=== PATIENT | male | born 1930 | race Caucasian/White ===

== ENCOUNTER 2018-10-25 09:21 | Emergency (ER) | payer MEDICARE, BC ==
[2018-10-25 09:41] VITALS: BP 141/76
--- NOTE | 2018-10-25 09:56 | UC ---
Respiratory Complaint HPI - HPI Summary HPI Summary: Pt presents with c/o nasal congestion, productive cough with yellow/brown phlegm X 2 days. Pt has past hx of smoking for "long time". Pt reports generalized malaise and fatigue. Pt states that his has pneumonia and is a resident in a local detention. - History of Current Complaint Chief Complaint: UCRespiratory Stated Complaint: COUGH THROAT Time Seen by Provider: 10/25/18 09:38 Hx Obtained From: Patient Onset/Duration: Sudden Onset, Lasting Days, Still Present Timing: Constant Severity Initially: Mild Severity Currently: Moderate Pain Intensity: 0 Character: Cough: Productive, Sputum Description: - yellow/brown Aggravating Factors: Exertion, Deep Breaths, Recumbent Position Alleviating Factors: OTC Meds Associated Signs And Symptoms: Positive: Nasal Congestion - Risk Factors Pulmonary Embolism Risk Factors: Negative Cardiac Risk Factors: Elevated Lipids Pseudomonas Risk Factors: Negative Tuberculosis Risk Factors: Negative - Allergies/Home Medications Allergies/Adverse Reactions: Allergies Allergy/AdvReac Type Severity Reaction Status Date / Time Sulfa (Sulfonamide Allergy Nausea And Verified 10/25/18 09:32 Antibiotics) Vomiting PMH/Surg Hx/FS Hx/Imm Hx Previously Healthy: Yes Endocrine History: Dyslipidemia Cardiovascular History: Cardiac Disease - Surgical History Surgical History: Yes Surgery Procedure, Year, and Place: cataracts 2013, eye surgery 2014 - Family History Known Family History: Positive: Hypertension - Social History Occupation: Retired Lives: With Family Alcohol Use: Occasionally Substance Use Type: None Smoking Status (MU): Former Smoker Have You Smoked in the Last Year: No When Did the Patient Quit Smoking/Using Tobacco: 1981 - Immunization History Most Recent Influenza Vaccination: 2013 Review of Systems All Other Systems Reviewed And Are Negative: Yes Constitutional: Positive: Fatigue Skin: Positive: Negative Eyes: Positive: Negative ENT: Positive: Sinus Congestion Respiratory: Positive: Shortness Of Breath, Cough Cardiovascular: Positive: Negative Gastrointestinal: Positive: Negative Genitourinary: Positive: Negative Motor: Positive: Weakness Neurovascular: Positive: Negative Musculoskeletal: Positive: Negative Neurological: Positive: Negative Psychological: Positive: Negative Is Patient Immunocompromised?: No Physical Exam Triage Information Reviewed: Yes Appearance: Thin Vital Signs: Initial Vital Signs Temp 98.9 F 10/25/18 09:37 Pulse 93 10/25/18 09:37 Resp 18 10/25/18 09:37 BP 141/76 10/25/18 09:37 Pulse Ox 99 10/25/18 09:37 Vital Signs Reviewed: Yes Eye Exam: Normal ENT: Positive: Nasal congestion Dental Exam: Normal Neck exam: Normal Respiratory: Positive: Decreased breath sounds Cardiovascular Exam: Normal Musculoskeletal Exam: Normal Neurological Exam: Normal Psychological Exam: Normal Skin Exam: Normal Diagnostics - Radiology No standard instances Radiology Interpretation Completed By: Radiologist - Medical Services Manager: Sylvie Rey S, ([id number]) Piano Mover: REBEKAH (VICENTEANCE) Report Date: 2018 09:47:00 Report Status: Final ======= Start of Report Content Patient Name: BRIGHT LICEA Medical Record#: [id number] Ordering Physician: Parul Hurt [employer] Acct.#: [id number] : 1930 Age: 88 Sex: M Location: [facility] Exam Date: 10/25/18946 ADM Status: REG ER Order Information: CHEST PA LAT 2 VWS Accession Number: [id number] CPT: 90534 Indication: Cough. 2 views of the chest and straight no mediastinal shift. Hyperinflated lung aguirre are noted. Right paramediastinal density is noted. Infiltrate or mass is not excluded. Left lung field is clear. IMPRESSION: Right paramediastinal density for which a mass or pneumonia is not excluded. COPD is noted. < Electronically signed by Sylvie Rey MD in OV> 10/25/18 1012 Dictated By: Sylvie Rey MD Dictated Date/Time: 10/25/18 1011 Transcribed Date/Time: 10/25/18 1011 Copy to: CC:Mac Ibarra MD; Parul Hurt [employer]; Rod Schneider MD Imaging - [facility] Imaging - [facility] - [facility] [address] [place] [id number] [place] [id number] ph [phone]) ph [phone] ph ) End of Report Content Respiratory Course/Dx - Course Course Of Treatment: I discussed the results of the xray and instructed the pt to follo wup as soon as possible with PCP. Pt verbalized understanding and agreed to plan of care. - Differential Dx/Diagnosis Differential Diagnosis/HQI/PQRI: Bronchitis, Other - lung mass Provider Diagnosis: Pneumonia, Mass of right lung Discharge ED - Sign-Out/Discharge Documenting (check all that apply): Patient Departure All imaging exams completed and their final reports reviewed: Yes - Discharge Plan Condition: Stable Disposition: HOME Prescriptions: Albuterol HFA INHALER* [Ventolin HFA Inhaler*] 1 - 2 puff INH Q6H PRN #1 mdi PRN Reason: Sob/Wheezing DOXYcycline CAP(*) [DOXYcycline 100MG CAP(*)] 100 mg PO Q12H #20 cap Patient Education Materials: Community Acquired Pneumonia (ED), Pneumonia (ED) Referrals: Mac Ibarra MD [Primary Care Provider] - As Soon As Possible - Billing Disposition and Condition Condition: STABLE Disposition: Home
== END 2018-10-25 10:38 | disposition home or self-care (01) ==
LOC: UCCORT 09:21
DX: J18.9 Pneumonia, unspecified organism (principal); R91.8 Other nonspecific abnormal finding of lung field; Z88.2 Allergy status to sulfonamides; Z87.891 Personal history of nicotine dependence
CPT/HCPCS: 71046; 99212; G0463

== ENCOUNTER → 2018-12-08 10:29 | Day surgery (SDC) | payer MEDICARE, BC ==
[~2018-12-08 10:29] MED LIST: Benzocaine/Butamben/Tetracain (CETACAINE - SINGLE USE) 5 gm TOPICAL ONE; Buffered Lidocaine 1% SYRIN* 1 ML/SYRINGE INTRADERM ONE; Cisatracurium* 2 MG/ML MDV 5 ML ONE; Dexamethasone IV* 4 MG/ML 1 ML (4 MG) ONE; Famotidine IV* 10 MG/ML 2 ML (20 mg) IV ONE; Famotidine IV* 10 MG/ML 2 ML (20 mg) ONE; Glycopyrrolate IV* 0.2 MG/ML 1 ML VIAL ONE; Lactated Ringers 1000 ML Bag* 1,000 ML IV SCH; Levalbuterol 0.63MG/3ML NEB* UNIT OF USE INH ONE; Levalbuterol 0.63MG/3ML NEB* UNIT OF USE INH PRN; Lidocaine 2% PF * 5 ML VIAL ONE; Midazolam* 1 MG/ML 5 ML VIAL (5 MG) ONE; Naloxone* 0.4 MG/ML 1 ML VIAL IV PRN; Neostigmine Methylsulfate* 1 MG/ML 10 ML VIAL (1 mg/ml) ONE; Ondansetron INJ* 2 MG/ML VIAL IV PRN; Ondansetron INJ* 2 MG/ML VIAL ONE; Phenylephrine 40 MCG/ML SYRINGE ONE; Propofol* 10 MG/ML 20 ML BTL ONE; fentaNYL* 50 MCG/ML 2 ML VIAL (100 MCG VIAL) ONE
--- NOTE | 2018-12-08 16:03 | BRIEFOPN ---
Brief Operative/Procedure Note - Operation Details Pre-Op Diagnosis: lung mass Post-Op Diagnosis: Lung cancer Procedures: Bronchoscopy/EBUS Surgeon(s)/Proceduralists: connor Barnes Anesthesia: GA- DR RAE Estimated Blood Loss: Minimal Findings: Negative for metastatic disease in lymph nodes, rt paratracheal mass positive for cancer Specimen(s)/Culture(s) Description: Cytology from L4, station 7, R4, Rt paratracheal mass Complications: None
[2018-12-08] MEDS: fentaNYL* 50 MCG/ML 2 ML VIAL (100 MCG VIAL) IV PRN ×2 (16:53→17:00)
[2018-12-08 18:09] VITALS: BP 134/70
--- NOTE | 2018-12-08 21:59 | PRO ---
BRONCHOSCOPY REPORT: DATE OF PROCEDURE: 12/08/18 - [facility] PROCEDURE PERFORMED: Bronchoscopy with endobronchial ultrasound-guided fine needle aspiration of mediastinal hilar nodes and paratracheal lung mass. PREPROCEDURAL DIAGNOSIS: Paratracheal lung mass. ANESTHESIA: General anesthesia. ANESTHESIOLOGIST: Dr. Ochoa. DESCRIPTION OF PROCEDURE: Informed consent was obtained from the patient prior to the procedure after all the risks and benefits were thoroughly explained. The patient was intubated with size 9 endotracheal tube. Appropriate time-out was performed and agreed on by attending staff prior to the procedure. A flexible Olympus bronchoscope was inserted through ET tube for airway inspection. No endobronchial lesions were noted. No significant extrinsic compression of the trachea or narrowing of the trachea was noted. Minimal secretions were noted and were suctioned. Bronchoscope was then withdrawn and EBUS bronchoscope was inserted. Station L4 was minimally enlarged and was accessed with 1 pass. Rapid on-site evaluation revealed lymphatic tissue with no malignant cells. Station 7 was accessed with 2 passes. Rapid on-site evaluation revealed lymphatic cells, no malignant cells were noted. Station R4 was minimally enlarged and was accessed with also 4 passes. Rapid on-site evaluation revealed lymphatic tissue with no malignant cells. Right paratracheal mass was then accessed also with 5 passes. Rapid on-site evaluation revealed malignant cells on fourth pass. Rest of the specimen was placed in CytoLyt. Air-dried slides were also prepared. The patient tolerated the procedure well. The patient was extubated and seen in Recovery in optimal condition. [id number]/CPS #: [id number] MTDD
[2019-01-02 21:43] LABS: LNGPR Specimen Cells; LNGPR Tissue ID CN19-1278-4
== END | disposition home or self-care (01) ==
LOC: OR 10:29
PROVIDERS: ATTEND Internal Medicine
DX: C34.01 Malignant neoplasm of right main bronchus (principal); Z87.891 Personal history of nicotine dependence; I10 Essential (primary) hypertension; K21.9 Gastro-esophageal reflux disease without esophagitis; M81.0 Age-related osteoporosis without current pathological fracture; E78.5 Hyperlipidemia, unspecified; I73.9 Peripheral vascular disease, unspecified
CPT/HCPCS: 81445; 88172; 88173; 88177; 88305; 88341; 88342; 88360; 93005; J1100; J2250; J2405; J2704; J2710; J3010

== ENCOUNTER 2018-12-11 09:29 | Emergency (ER) | payer MEDICARE, BC ==
--- OUTSIDE RECORDS SUMMARY | 2018-12-11 09:42 | XMS REPORT | Continuity of Care Document ---
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 Mac Ibarra Onset: 02/14 heart failure Osteochondropathy Mac Ibarra Onset: 02/14/2005 Peripheral vascular disease Mac Ibarra Onset: 02/14/2005 Senile osteoporosis Mac Ibarra Onset: 02/14/2005 Conduction disorder of the heart Mac Ibarra Onset: 02/14/2005 Congenital insufficiency of mitral valve Mac Ibarra Onset: 07/26/2007 Carotid artery occlusion Mac Ibarra Onset: 07/26/2007 Palpitations Mac Ibarra Onset: 07/26/2007 Hyperlipidemia Mac Ibarra Onset: 07/26/2007 Osteoporosis Mac Ibarra Onset: 07/26/2007 Gastroesophageal reflux disease Mac Ibarra Onset: 07/26/2007 Coronary arteriosclerosis Mac Ibarra Onset: 07/26/2007 Thrombosed internal hemorrhoids Mac Ibarra Onset: 07/26/2007 Kidney stone Mac Ibarra Onset: 07/26/2007 Kidney stone Stacey Mac Onset: 07/26/2007 Social History Type Date Description Comments Sex Unknown Tobacco Use Start: Unknown End: Former Cigarette Smoker 1 quit in 1981 Unknown Pack Daily ETOH Use Rarely consumes alcohol Recreational Drug Use Denies Drug Use Tobacco Use Start: Unknown End: Patient is a former smoker Unknown Smoking Status Reviewed: 12/15/16 Patient is a former smoker Allergies, Adverse Reactions, Alerts Active Allergies Reaction Severity Comments Date Flonase 03/03/2005 sussy 03/03/2005 nasacort 03/03/2005 Pneumovax rash Moderate 12/09/2010 Sulfa Antibiotics Nausea and Vomiting Moderate 01/03/2014 Medications Active Medications SIG Qnty Indications Ordering Provider Date Nebulizer use four times 1units J18.1 Mac Ibarra 11/04/2018 Device daily dx j45.998 as needed Levalbuterol HCL Use 1 3 ML qid 15ml J18.1 Mac Ibarra 11/04/2018 prn SOB 0.31mg/3ML Nebulizer Indomethacin 1 by mouth 60caps M10.071 Stacey Mac 03/03/2018 25mg every 8 hours Capsules as needed Flomax 2 by mouth 180caps Stacey Mac 08/10/2017 0.4mg Capsules every day Prilosec OTC 1 by mouth 90tabs M10.071 [email or web address] Mac 08/10/2017 20mg Tablets every day as DR needed Calcium Carbonate 1 PO qd Mac Ibarra 03/03/2005 600mg Tablets Tylenol Arthritis 2 PO qd prn James Ibarral 03/03/2005 650mg Caplets Aspirin 1 PO qd James Ibarral 03/03/2005 81mg [place] Lipitor 1 po qd 90tabs Stacey Mac 03/03/2005 20mg Tablets History Medications Ipratropium as directed four 270ml J18.1 Stacey Mac 11/04/2018 - [place]/Albuterol Sulfate times a day via 11/04/2018 nebulizer. j44.9 0.5-2.5(3)mg/3ML Solution Medications Administered in Office Medication SIG Qnty Indications Ordering Provider Date H1N1 Administration-Use Mac Ibarra 12/26/2008 Injection H1N1 Administration-Use Mac Ibarra 12/26/2008 Injection Immunizations CPT Code Status Date Vaccine Lot # Q2035 Given 11/17/2017 Influenza Virus (Afluria) Split Virus 3 Years [id number] Of Age And Older Q2035 Given 12/15/2016 Influenza Virus (Afluria) Split Virus 3 Years Of Age And Older Q2037 Given 11/19/2015 Influenza Vaccine (Fluvirin) 5 Years Of Age Or [id number] Older 48588 Given 12/19/2014 Pneumococcal Conjugate Vaccine 13 Valent For [id number] Intramuscular Use Q2035 Given 2014 Influenza Virus (Afluria) Split Virus 3 Years [id number] Of Age And Older Q2037 Given 11/16/2013 Influenza Vaccine (Fluvirin) 3 Years Of Age Or Older Q2037 Given 11/16/2013 Influenza Vaccine (Fluvirin) 3 Years Of Age Or Older Q2038 Given 11/15/2012 Influenza Vaccine (Fluzone) Administered Age 5 [id number] And Older Q2037 Given 11/11/2011 Influenza Vaccine (Fluvirin) 5 Years Of Age Or [id number] Older 57693 Given 12/09/2010 Tetanus,Diphtheria,Adut/Adol Pertussis [id number] Q2036 Given 11/26/2010 Flulaval [id number] 00537 Given 04/30/2010 [place]ovax [place] [id number] 36626 Given 11/08/2009 Influenza Vaccine [id number] 39036 Given 10/09/2009 Zostavax [id number] 20672 Given 01/15/2009 Influenza Vaccine 30157 Given 12/08/2007 Influenza Vaccine 32028 61551 Given 11/23/2006 Influenza Vaccine [id number] 95660 Given 12/02/2005 Influenza Vaccine 75365 Given 12/02/2005 Influenza Vaccine [id number] 16180 Given 12/17/2004 Influenza Vaccine [id number] 89495 Given 12/17/2004 Influenza Vaccine 85317 Given 12/05/2004 Pneumovax Polyvalent Inj Im [id number] 58326 Given 12/05/2004 [place] [address] Given 11/24/1995 DT Immunization DIP/Tet (History Only) Vital Signs Date Vital Result Comment 12/01/2018 9:49am BP Systolic 120 mmHg BP Diastolic 60 mmHg Heart Rate 100 /min Respiratory Rate 20 /min Weight 114.00 lb O2 % BldC Oximetry 93 % 11/18/2018 10:13am BP Systolic 170 mmHg BP Diastolic 88 mmHg Heart Rate 99 /min Weight 114.00 lb O2 % BldC Oximetry 96 % Results Test Date Facility Test Result H/L Range Note Comprehensive Metabolic 11/25/2018 [facility] Glucose 220 mg/dL High 65-[address] [place] [address] [phone] Urea Nitrogen (BUN) 16 mg/dL Normal 7-25 Creatinine 0.74 mg/dL Normal 0.70-1.11 2 eGFR Non-Afr. Cypriot 84 mL/min/1.73m2 Normal > Or = 60 eGFR 97 mL/min/1.73m2 Normal > Or = 60 BUN/Creatinine Ratio NOT APPLICABLE (calc) 6-22 Sodium 137 mmol/L Normal 135-146 Potassium 4.3 mmol/L Normal 3.5-5.3 Chloride 99 mmol/L Normal 98-110 Carbon Dioxide 29 mmol/L Normal 20-32 Calcium 9.4 mg/dL Normal 8.6-10.3 Protein, Total 6.1 g/dL Normal 6.1-8.1 Albumin 3.4 g/dL Low 3.6-5.1 Globulin 2.7 g/dL(calc) Normal 1.9-3.7 Albumin/Globulin Ratio 1.3 (calc) Normal 1.0-2.5 Bilirubin, Total 0.4 mg/dL Normal 0.2-1.2 Alkaline Phosphatase 104 U/L Normal 40-115 Ast 11 U/L Normal 10-35 Alt 9 U/L Normal 9-46 Laboratory test 11/25/2018 [facility] Enhanced PDF SEE IMAGE finding [address] [place] [address] [id number] [phone] Laboratory test 10/22/2018 Old DO Not Use [facility] Uric Acid 5.0 mg/dL 4.0-8 3, [address] [place] [address] [phone] Esr,Westergren 50 MM/HR High 0-20 Lipid Panel 10/22/2018 Old DO Not Use [facility] Cholesterol 115 mg/dL < [address] [place] [address] [phone] HDL Cholesterol 60 mg/dL >40 Cholesterol/HDL Ratio 1.9 CALC <5.0 LDL Chol,Calculated 36 mg/dL 0-100 5 Triglycerides 102 mg/dL <150 Non-HDL Cholesterol 55 mg/dL <130 6 General Health Panel 10/22/2018 Old DO Not Use [facility] TSH 1.98 mIU/L 0.40-4.[address] [facility] [address] [place] [address] [phone] T4,Free 1.1 ng/dL 0.8-1.8 CBC W/ Diff & 10/22/2018 Old DO Not Use [facility] WBC 13.7 thous/L High 3.8-10.[address] [place] [address] [phone] RBC 4.79 mill/L 4.20-5.80 Hemoglobin 14.5 g/dL 13.2-17.1 Hematocrit 42.4 % 38.5-50.0 MCV 88.5 FL 80.0-100.0 MCH 30.3 pg 27.0-33.0 MCHC 34.2 g/dL 32.0-36.0 RDW 13.0 % 11.0-15.0 Platelet Count 287 thous/L 140-400 MPV 9.1 FL 7.5-12.5 Neutrophils,Absolute 64431 cells/L High 1168-4786 Bands,Absolute PENDING Metamyelocytes,Absolute PENDING Myelocytes,Absolute PENDING Promyelocytes,Absolute PENDING Lymphocytes,Absolute 1300 cells/L 850-3900 Monocytes,Absolute 1030 cells/L High 200-950 Eosinophils,Absolute 230 cells/L 15-500 Basophils,Absolute 50 cells/L 0-200 Blast Cells,Absolute PENDING Nucleated RBC,Absolute PENDING Total Neutrophils,% 80.9 % High 40-75 Bands,% PENDING Metamyelocytes,% PENDING Myelocytes,% PENDING Promyelocytes,% PENDING Total Lymphocytes,% 9.5 % Low 12-47 Reactive Lymphocytes PENDING Monocytes,% 7.5 % 4-12 Eosinophils,% 1.7 % 0-4 Basophils,% 0.4 % 0-1 7 Blasts,% PENDING Nucleated RBC PENDING Comment PENDING CMP W/GFR 10/22/2018 Old DO Not Use [facility] Sodium 140 mmol/L 135-[address] [place] [address] [phone] Potassium 4.0 mmol/L 3.5-5.3 Chloride 102 mmol/L 98-110 Carbon Dioxide 28 mmol/L 20-32 8 Calcium 9.4 mg/dL 8.6-10.3 Alkaline Phosphatase 124 U/L High 40-115 Ast 14 U/L 10-35 Alt 11 U/L 9-46 Bilirubin,Total 0.4 mg/dL 0.2-1.2 Glucose 112 mg/dL High 65-99 9 Urea Nitrogen (BUN) 16 mg/dL 7-25 Creatinine 0.87 mg/dL 0.70-1.11 10 BUN/Creatinine Ratio 18.3 6-22 Protein,Total 6.6 g/dL 6.1-8.1 Albumin 3.7 g/dL 3.6-5.1 Globulin,Calculated 2.9 g/dL 1.9-3.7 A/G Ratio 1.3 1.0-2.5 Egfr Non-Afr. Cypriot 79 ML/MIN/1.73M2 > Or = 60 Egfr 91 ML/MIN/1.73M2 > Or = 60 Laboratory 10/22/2018 Old DO Not Use [facility] Vitamin 69 30-[address] D,25-Hydroxy,Total,Immunoassay NG/[place] [address] [phone] Laboratory 06/30/2018 Old DO Not Use [facility] Uric Acid 5.1 4.0-8.0 [address] mg/[place] [address] [phone] General 06/30/2018 Old DO Not Use [facility] TSH 3.00 0.40-4. Health [address] mIU/L 50 [place] [address] [phone] T4,Free 1.0 ng/dL 0.8-1.8 CBC W/ Diff & PLT 06/30/2018 Old DO Not Use [facility] WBC 9.1 thous/L 3.8-10.[address] [place] [address] [phone] RBC 4.94 mill/L 4.20-5.80 Hemoglobin 14.9 g/dL 13.2-17.1 Hematocrit 45.4 % 38.5-50.0 MCV 91.8 FL 80.0-100.0 MCH 30.0 pg 27.0-33.0 MCHC 32.7 g/dL 32.0-36.0 RDW 14.9 % 11.0-15.0 Platelet Count 277 thous/L 140-400 MPV 8.2 FL 7.5-12.5 Neutrophils,Absolute 7060 cells/L 0048-6105 Bands,Absolute PENDING Metamyelocytes,Absolute PENDING Myelocytes,Absolute PENDING Promyelocytes,Absolute PENDING Lymphocytes,Absolute 1230 cells/L 850-3900 Monocytes,Absolute 590 cells/L 200-950 Eosinophils,Absolute 200 cells/L 15-500 Basophils,Absolute 30 cells/L 0-200 Blast Cells,Absolute PENDING Nucleated RBC,Absolute PENDING Total Neutrophils,% 78 % High 40-75 Bands,% PENDING Metamyelocytes,% PENDING Myelocytes,% PENDING Promyelocytes,% PENDING Total Lymphocytes,% 14 % 12-47 Reactive Lymphocytes PENDING Monocytes,% 6 % 4-12 Eosinophils,% 2 % 0-4 Basophils,% 0 % 0-1 13 Blasts,% PENDING Nucleated RBC PENDING Comment PENDING CMP W/GFR 06/30/2018 Old DO Not Use [facility] Sodium 139 mmol/L 135-[address] [place] [address] [phone] Potassium 4.4 mmol/L 3.5-5.3 Chloride 102 mmol/L 98-110 Carbon Dioxide 29 mmol/L 20-32 14 Calcium 9.3 mg/dL 8.6-10.3 Alkaline Phosphatase 101 U/L 40-115 Ast 17 U/L 10-35 Alt 13 U/L 9-46 Bilirubin,Total 0.6 mg/dL 0.2-1.2 Glucose 100 mg/dL High 65-99 15 Urea Nitrogen (BUN) 16 mg/dL 7-25 Creatinine 0.93 mg/dL 0.70-1.11 16 BUN/Creatinine Ratio 17.4 6-22 Protein,Total 6.7 g/dL 6.1-8.1 Albumin 4.2 g/dL 3.6-5.1 Globulin,Calculated 2.5 g/dL 1.9-3.7 A/G Ratio 1.6 1.0-2.5 Egfr Non-Afr. Cypriot 75 ML/MIN/1.73M2 > Or = 60 Egfr 86 ML/MIN/1.73M2 > Or = 60 Laboratory 06/30/2018 Old DO Not Use [facility] Vitamin 71 30-[address] D,25-Hydroxy,Total,Immunoassay NG/[place] [address] [phone] Lipid Panel 06/30/2018 Old DO Not Use [facility] Cholesterol 115 <[address] mg/[place] [address] [phone] HDL Cholesterol 57 mg/dL >40 Cholesterol/HDL Ratio 2.0 CALC <5.0 LDL Chol,Calculated 39 mg/dL 0-100 18 Triglycerides 105 mg/dL <150 Non-HDL Cholesterol 58 mg/dL <130 19 1 Fasting reference interval For someone without known diabetes, a glucose value >125 mg/dL indicates that they may have diabetes and this should be confirmed with a follow-up test. 2 For patients >49 years of age, the reference limit for Creatinine is approximately 13% higher for people identified as -Cypriot. 3 FASTING 4 Therapeutic target for gout patients: <6.0 mg/dL 5 LDL-C is now calculated using the Glenn-Kevin calculation, which is a validated novel method providing better accuracy than the Friedewald equation in the estimation of LDL-C. Glenn ROBLES et al.MGE.2013;310(19):7235-4471 Desirable range <100 mg/dL for primary prevention; <70 mg/dL for patients with CHD or diabetic patients with >or= 2 CHD risk factors. 6 For patients with diabetes plus 1 major ASCVD risk factor, treating to a non-HDL-C goal of <100 mg/dL (LDL-C of <70 mg/ dL) is considered a therapeutic option. 7 Relative blood cell counts (%) should be compared with absolute cell counts (cells/mcL). Relative counts may not be clinically meaningful if the absolute count of one or more cell type is decreased. Reference ranges for relative cell counts derived from: A Manual of Laboratory and Diagnostics Tests, 9th Ed, S[employer] Nabil & Viver[employer], 2015. Pediatric Reference Intervals, 7th Ed, [employer], 2011. 8 Reference range for high altitude clients: 18-30 mmol/L 9 GLUCOSE REFERENCE RANGE BASED ON FASTING SPECIMEN. 10 The upper reference limit for Creatinine is approximately 13% higher for people identified as -Cypriot. 11 Vitamin D Status 25-OH Vitamin D: Deficiency: <20 ng/mL Insufficiency: 20-29 ng/mL Optimal: > or = 30 ng/mL For 25-OH Vitamin D testing on patients on D2-supplementation and patients for whom quantitation of D2 and D3 fractions is required, the [facility] 25-OH Vit D, (D2,D3),LC/MS/MS is recommended: Order code 65948 (patients >2 yrs). 12 Therapeutic target for gout patients: <6.0 mg/dL 13 Relative blood cell counts (%) should be compared with absolute cell counts (cells/mcL). Relative counts may not be clinically meaningful if the absolute count of one or more cell type is decreased. Reference ranges for relative cell counts derived from: A Manual of Laboratory and Diagnostics Tests, 9th Ed, S[employer] Nabil & Viveros, 2015. Pediatric Reference Intervals, 7th Ed, [facility] Press, 2011. 14 Reference range for high altitude clients: 18-30 mmol/L 15 GLUCOSE REFERENCE RANGE BASED ON FASTING SPECIMEN. 16 The upper reference limit for Creatinine is approximately 13% higher for people identified as -Cypriot. 17 Vitamin D Status 25-OH Vitamin D: Deficiency: <20 ng/mL Insufficiency: 20-29 ng/mL Optimal: > or = 30 ng/mL For 25-OH Vitamin D testing on patients on D2-supplementation and patients for whom quantitation of D2 and D3 fractions is required, the [facility] 25-OH Vit D, (D2,D3),LC/MS/MS is recommended: Order code 02923 (patients >2 yrs). 18 LDL-C is now calculated using the Glenn-Brown calculation, which is a validated novel method providing better accuracy than the Friedewald equation in the estimation of LDL-C. Glenn SS et al.MEG.2013;310(19):2120-6701 Desirable range <100 mg/dL for primary prevention; <70 mg/dL for patients with CHD or diabetic patients with >or= 2 CHD risk factors. For additional information, please refer to http://[email or web address].com.[employer] [email or web address]/JYK448(This link is being provided for informational/educational purposes only.) 19 For patients with diabetes plus 1 major ASCVD risk factor, treating to a non-HDL-C goal of <100 mg/dL (LDL-C of <70 mg/ dL) is considered a therapeutic option. Procedures Date Code Description Status 10/22/2018 60244 Spirometry Graphic Record/Max Voluntary Vent Completed 07/08/2018 93318 PVR-Atrerial Study Completed 07/08/2018 05184 Holter Monitor Office Completed 07/05/2018 33875 Non-Invcorrotid/Comp /Bilat Study Completed 07/05/2018 82762 Echocardiography Completed 05/22/2016 101074186 Bone Mineral Density Test Completed 02/24/2004 [id number] Colonoscopy Completed Medical Devices Description No Information Available Encounters Type Date Location Provider Dx Diagnosis Office Visit 12/01/2018 10:00a Main Office Mac Ibarra R06.02 Shortness of breath C34.91 Malignant neoplasm of unsp part of right bronchus or lung J18.1 Lobar pneumonia, unspecified organism M75.101 Unsp rotatr-cuff tear/ruptr of right shoulder, not trauma I34.0 Nonrheumatic mitral (valve) insufficiency E78.5 Hyperlipidemia, unspecified I11.9 Hypertensive heart disease without heart failure N40.0 Benign prostatic hyperplasia without lower urinry tract symp I25.10 Athscl heart disease of [place] coronary artery w/o ang pctrs K21.9 Gastro-esophageal reflux disease without esophagitis E55.9 Vitamin D deficiency, unspecified R73.01 Impaired fasting glucose Office Visit 11/18/2018 10:30a Main Office Mac Ibarra 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 J18.1 Lobar pneumonia, unspecified organism J44.9 Chronic obstructive pulmonary disease, unspecified M75.101 Unsp rotatr-cuff tear/ruptr of right shoulder, not trauma I34.0 Nonrheumatic mitral (valve) insufficiency E78.5 Hyperlipidemia, unspecified 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, right ankle and foot I65.23 Occlusion and stenosis of bilateral carotid arteries Office Visit 11/04/2018 10:00a Main Office Mac Ibarra J18.1 Lobar pneumonia, unspecified organism J44.9 Chronic obstructive pulmonary disease, unspecified M75.101 Unsp rotatr-cuff tear/ruptr of right shoulder, not trauma I34.0 Nonrheumatic mitral (valve) insufficiency E78.5 Hyperlipidemia, unspecified 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, right ankle and foot I65.23 Occlusion and stenosis of bilateral carotid arteries Office Visit 10/07/2018 11:15a Main Office Mac Ibarra M75.101 Unsp rotatr -cuff tear/ruptr of right shoulder, not trauma Office Visit 09/23/2018 10:00a Main Office Mac Ibarra M75.101 Unsp rotatr -cuff tear/ruptr of right shoulder, not trauma Office Visit 09/14/2018 10:30a Main Office Mac Ibarra M75.101 Unsp rotatr -cuff tear/ruptr of right shoulder, not trauma Office Visit 09/08/2018 10:30a Main Office Mac Ibarra M75.101 Unsp rotatr -cuff tear/ruptr of right shoulder, not trauma Office Visit 08/03/2018 10:15a Main Office Mac Ibarra I34.0 Nonrheumatic mitral (valve) insufficiency E78.5 Hyperlipidemia, unspecified 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810 Encounter for preprocedural cardiovascular examination E78.5 Hyperlipidemia, unspecified I11.9 Hypertensive heart disease without heart failure 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, right ankle and foot I34.0 Nonrheumatic mitral (valve) insufficiency N40.0 Benign prostatic hyperplasia without lower urinry tract symp K21.9 Gastro-esophageal reflux disease without esophagitis I25.10 Athscl heart disease of [place] coronary artery w/o ang pctrs Assessments Date Code Description Provider 12/01/2018 R06.02 Shortness of breath Mac Ibarra 12/01/2018 C34.91 Malignant neoplasm of unspecified part of right Mac Ibarra bronchus or lung 12/01/2018 J18.1 Lobar pneumonia, unspecified organism Mac Ibarra 12/01/2018 M75.101 Unspecified rotator cuff tear or rupture of right Mac Ibarra shoulder, not specified as traumatic 12/01/2018 I34.0 Nonrheumatic mitral (valve) insufficiency James Ibarral 12/01/2018 E78.5 Hyperlipidemia, unspecified Stacey, [facility] 12/01/2018 I11.9 [facility] N40.0 Benign prostatic hyperplasia without lower urinary James Ibarral tract symptoms 12/01/2018 I25.10 Atherosclerotic heart disease of [place] coronary James Ibarral artery without angina pectoris 12/01/2018 K21.9 Gastro-esophageal reflux disease without esophagitis Kylio 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 11/18/2018 J44.9 Chronic obstructive pulmonary disease, unspecified [facility] 11/18/2018 M75.101 Unspecified rotator cuff tear or rupture of right James Ibarral shoulder, not specified as traumatic 11/18/2018 I34.0 Nonrheumatic mitral (valve) insufficiency [facility] 11/18/2018 E78.5 Hyperlipidemia, unspecified 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 11/04/2018 J44.9 Chronic obstructive pulmonary disease, unspecified [email or web address] 11/04/2018 M75.101 Unspecified rotator cuff tear or rupture of right Mac Ibarra shoulder, not specified as traumatic 11/04/2018 I34.0 Nonrheumatic mitral (valve) insufficiency [facility], [facility] 11/04/2018 E78.5 Hyperlipidemia, unspecified 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 11/04/2018 I65.23 Occlusion and stenosis of bilateral carotid arteries [facility] 10/22/2018 R06.02 Shortness of breath [facility] 10/22/2018 J44.9 Chronic obstructive pulmonary disease, [facility] 10/22/2018 R05 Cough Stacey, [facility] 10/07/2018 M75.101 Unspecified rotator cuff tear or rupture of right Mac Ibarra shoulder, not specified as traumatic 09/23/2018 M75.101 Unspecified rotator cuff tear or rupture of right Mac Ibarra shoulder, not specified as traumatic 09/14/2018 M75.101 Unspecified rotator cuff tear or rupture of right Mac Ibarra shoulder, not specified as traumatic 09/08/2018 M75.101 Unspecified rotator cuff tear or rupture of right Mac Ibarra shoulder, not specified as traumatic 08/03/2018 I34.0 [facility]rheumatic [facility] (valve) [facility] 08/03/2018 E78.5 [facility], [facility] 08/03/2018 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, right ankle [facility] foot [facility] 08/03/2018 I65.23 Occlusion and stenosis of bilateral carotid arteries Kylio Mac 08/03/2018 I11.9 Hypertensive heart disease without heart failure [facility] 08/03/2018 N40.0 Benign prostatic hyperplasia without lower urinary James Ibarral tract symptoms 08/03/2018 I25.10 Atherosclerotic heart disease of [place] coronary James Ibarral artery without angina pectoris 08/03/2018 K21.9 Gastro-esophageal reflux disease without esophagitis Kylio [facility] 08/03/2018 E55.9 Vitamin D deficiency, unspecified [facility] 08/03/2018 R73.01 Impaired fasting [facility] 08/03/2018 J44.9 Chronic obstructive pulmonary disease, [facility] 08/03/2018 Z00.00 Encounter for general adult medical examination James Ibarral without abnormal findings 07/08/2018 R00.2 Palpitations Stacey Mac 07/08/2018 I73.9 Peripheral vascular disease, [facility] 07/05/2018 I34.0 Nonrheumatic [facility] (valve) [facility] 07/05/2018 I65.23 Occlusion and stenosis of bilateral carotid arteries Stacey Mac 07/01/2018 Z01.810 Encounter for preprocedural cardiovascular examination James Ibarral 07/01/2018 E78.5 Hyperlipidemia, unspecified James Ibarral 07/01/2018 I11.9 Hypertensive heart disease without heart failure James Ibarral 07/01/2018 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, right ankle and foot James Ibarral 07/01/2018 I34.0 Nonrheumatic mitral (valve) insufficiency James Ibarral 07/01/2018 N40.0 Benign prostatic hyperplasia without lower urinary Mac Ibarra tract symptoms 07/01/2018 K21.9 Gastro-esophageal reflux disease without esophagitis James Ibarral 07/01/2018 I25.10 Atherosclerotic heart disease of [place] coronary RitchielioJamesl artery without angina pectoris 06/30/2018 E78.2 Mixed hyperlipidemia Mac Ibarra Plan of Treatment Future Appointment(s):12/09/2018 9:30 am - Nurse at Main [id number]/16/2018 10: 15 am - Mac Ibarra at Main [id number]/01/2018 - James IbarralR06.02 Shortness of breathReferral:Fabiano Herrera MD, Pulmonary KbuwufeqY56.91 Malignant neoplasm of unspecified part of right bronchus or lungJ18.1 Lobar pneumonia, unspecified tansqchbN17.101 Unspecified rotator cuff tear or rupture of right shoulder, not specified as traumaticComments:Discussed local measures and modalities of treatment as indicated including medications and side effects, stretching, exercise, local application of heat and ice packs, etc. Referral as needed and follow up of treatment plan including physical therapy, orthopedic and podiatry when necessary for progression of symptoms or failure to improve. Activities and lifestyle issues that can aggravate conditionexplored and counseled about appropriate changes where needed.left shoulder discomfort for over 1 year with difficulty trouwing a ballMRI as indicated to r/o rotator cuff tearI34.0 Nonrheumatic mitral (valve) insufficiencyComments:Issues of symptoms and aggravating lifestyle factors such as sleep, stress and dietary choices discussed. Symptoms and medication treatment and compliance and side effects discussed as needed. Need forSBE prophalaxis with antibiotics addressed and discussed where indicated. Follow up Echocardiogram as required.Discussed valvular pathology and need if indicated for antibiotic prophylaxis to prevent S.B.E. Medication compliance and side effects issues addressed. Follow up echocardiogram as warranted.Results of 2D echo and other testing reviewed and discussed with patient possible etiologies, progression prognosis and need for prophylactic antibiotics before dental procedures if warranted for S.B.E. prophylaxis. Routine follow up/ surveillance planned.E78.5 Hyperlipidemia, unspecifiedComments:Counselled on role of diet and excersize and importance to keep compliance with medication if prescribed and side effects. The importance of routine monitoring of blood lipids and liver tests to managetreatment and avoid side effects were discussed. Usual follow up is 3 months for LFT and Lipid profile. Patient education including dietary guidelines and materials provided.I11.9 Hypertensive heart disease without heart failureComments:CONT. TO MONITOR BP, CONT. LOW SALT DIET Discussed lifestyle factors and role of diet and excerns incontrol of disease and treatment goals and targets. Medication side effects and compliance issues addressed as indicated. The importance of ongoing self monitoring of BP and the symptoms of complications such as TIA, CVA and AMI reviewed. The importance of reporting changes in between visits and side effects stressed. monitoring of patient provided BP checks and laboratory tests related to medicationreviewed. Discussed lifestyle factors and role of diet and excerns in control of disease and treatment goals and targets. Medication side effects and compliance issues addressed as indicated. The importance of ongoing self monitoring of BP and the symptoms of complications such as TIA, CVA and AMI reviewed. The importance of reporting changes in between visits and side effects stressed. monitoring of patient provided BP checks and laboratory tests related to medication reviewed.N40.0 Benign prostatic hyperplasia without lower urinary tract symptomsComments:yearly digital examyearly psaSymptoms and signs reviewed and therapy such as medication , vitamins, diet supplements and their risks and benefits discussed. Symptom progression and referral to urology as appropriate for symptom progression and severity discussed and ordered. The importance of medication compliance when appropriate discussed and the effects of other medications such as antihistamines and OTC cold medicines considered and discussed with patient. Lab work as appropriate and follow up symptomatically and with SUSAN yearly arrangedyearly digital examyearly psaSymptoms and signs reviewed and therapy such as medication, vitamins, diet supplements and their risks and benefits discussed. Symptom progression and referral to urology as appropriate for symptom progression and severity discussedand ordered. The importance of medication compliance when appropriate discussed and the effects of other medications such as antihistamines and OTC cold medicines considered and discussed with patient.Lab work as appropriate and follow up symptomatically and with SUSAN yearly kdcmqfnlR04.10 Atherosclerotic heart disease of [place] coronary artery without angina pectorisComments:No evidence of angina. Continue medicaton as directed. Monitor cholesterol regularly. Continue daily ASA. Continue regular jpojbemdE29.9 Gastro-esophageal reflux disease without esophagitisComments:Discussed role of diet and excersize and weight reduction and contribution of common exacerbating factors/ substances such as stress/ fatigue/caffeine/nicotine/chocolate/ foods.Signs and symptoms of disease progression discussed as well as necessity to promptly report changes or worsening and the need for medication compliance. Periodic measurement and follow up for serum Magnesium levels while on PPI.E55.9 Vitamin D deficiency, qcclliwanpjF23.01 Impaired fasting glucoseComments:diet and exerise Functional Status Description No Information Available Mental Status Description No Information Available Referrals Refer to Reason for Referral Status Appt Date Fabiano Herrera MD URGENT Sent [address] [place] [address] [phone]
--- OUTSIDE RECORDS SUMMARY | 2018-12-11 09:42 | XMS REPORT | Continuity of Care Document ---
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 Payers Medicare [place] [address] [facility] [address] [place] Group Number: NONE tel: [facility] [address] [address] [facility] [address] [place] Group Number: NONE tel: Luis M Puentes [address] [place] [id number] [place] tel:
--- OUTSIDE RECORDS SUMMARY | 2018-12-11 09:42 | XMS REPORT | Continuity of Care Document ---
:1930 External Reference #:[id number] Author Name StaceyJamesl (transmitted by agent of provider Kierra Allen) Address [address] [place] [address] Problems Active Problems Provider Date Benign hypertensive [...] Prilosec OTC 1 by mouth 90tabs M10.071 [facility] Mac 08/10/2017 20mg Tablets every day as DR needed Calcium Carbonate 1 PO qd Mac Ibarra 03/03/2005 600mg Tablets Tylenol Arthritis 2 PO qd prn James Ibarral 03/03/2005 650mg Caplets Aspirin 1 PO qd James Ibarral 03/03/2005 81mg Chewtabs Lipitor 1 po qd 90tabs Stacey Mac 03/03/2005 20mg Tablets History Medications Ipratropium as directed four 270ml J18.1 Stacey Mac 11/04/2018 - [place]/Albuterol Sulfate times a day via 11/04/2018 nebulizer. j44.9 0.5-2.5(3)mg/3ML Solution Medications Administered in Office Medication SIG Qnty Indications Ordering Provider Date H1N1 Administration-Use Mac Ibarra 12/26/2008 Injection H1N1 Administration-Use Mac Ibarra 12/26/2008 Injection Immunizations CPT Code Status Date Vaccine Lot # [id number] Given 11/17/2017 Influenza Virus (Afluria) Split Virus 3 Years [id number] Of Age And Older Q2035 Given 12/15/2016 Influenza Virus (Afluria) Split Virus 3 Years Of Age And Older Q2037 Given 11/19/2015 Influenza Vaccine (Fluvirin) 3 Years Of Age Or [id number] Older 37287 Given 12/19/2014 Pneumococcal Conjugate Vaccine 13 Valent For [id number] Intramuscular Use Q2035 Given 2014 Influenza Virus (Afluria) Split Virus 3 Years [id number] Of Age And Older Q2037 Given 11/16/2013 Influenza Vaccine (Fluvirin) 3 Years Of Age Or Older Q2037 Given 11/16/2013 Influenza Vaccine (Fluvirin) 3 Years Of Age Or Older Q2038 Given 11/15/2012 Influenza Vaccine (Fluzone) Administered Age 3 [id number] And Older Q2037 Given 11/11/2011 Influenza Vaccine (Fluvirin) 3 Years Of Age Or [id number] Older 42731 Given 12/09/2010 Tetanus,Diphtheria,Adut/Adol Pertussis [id number] Q2036 Given 11/26/2010 Flulaval [id number] 75970 Given 04/30/2010 [id number] [address]4545 Given 11/08/2009 Influenza Vaccine [id number] 59393 Given 10/09/2009 Zostavax [id number] 81768 Given 01/15/2009 Influenza Vaccine 80230 Given 12/08/2007 Influenza Vaccine 24599 09559 Given 11/23/2006 Influenza Vaccine [id number] 89033 Given 12/02/2005 Influenza Vaccine 88206 Given 12/02/2005 Influenza Vaccine 21650 84873 Given 12/17/2004 Influenza Vaccine [id number] 25653 Given 12/17/2004 Influenza Vaccine 26484 Given 12/05/2004 Pneumovax Polyvalent Inj Im [id number] 80535 Given 12/05/2004 [place] [address] Given 11/24/1995 DT Immunization DIP/Tet (History Only) [...] H/L Range Note Comprehensive Metabolic 11/25/2018 [facility] Glucose 220 mg/dL High 65-[address] [place] [address] [phone] Urea Nitrogen (BUN) 16 mg/dL Normal 7-25 Creatinine 0.74 mg/dL Normal 0.70-1.11 2 eGFR Non-Afr. [place] 84 mL/min/1.73m2 Normal > Or = 60 [...] U/L Normal 9-46 Laboratory test 11/25/2018 [facility] Enhanced PDF SEE IMAGE finding [address] [place] [address] [id number] [phone] Laboratory test 10/22/2018 Old DO Not Use [facility] Uric Acid 5.0 mg/dL 4.0-8 3, [address] [place] [address] [phone] Esr,Westergren 50 MM/HR High 0-20 Lipid Panel 10/22/2018 Old DO Not Use [facility] Cholesterol 115 mg/dL < [address] [place] [address] [phone] HDL Cholesterol 60 mg/dL >40 Cholesterol/HDL Ratio 1.9 CALC <5.0 LDL Chol,Calculated 36 mg/dL 0-100 5 Triglycerides 102 mg/dL <150 Non-HDL Cholesterol 55 mg/dL <130 6 General Health Panel 10/22/2018 Old DO Not Use [facility] TSH 1.98 mIU/L 0.40-4.[address] [facility] [address] [place] [address] [phone] T4,Free 1.1 ng/dL 0.8-1.8 CBC W/ Diff & 10/22/2018 Old DO Not Use [facility] WBC 13.7 thous/L High 3.8-10.[address] [place] [address] [phone] RBC 4.79 mill/L 4.20-5.80 Hemoglobin 14.5 g/dL 13.2-17.1 Hematocrit 42.4 % 38.5-50.0 MCV 88.5 FL 80.0-100.0 MCH 30.3 pg 27.0-33.0 MCHC 34.2 g/dL 32.0-36.0 RDW 13.0 % 11.0-15.0 Platelet Count 287 thous/L 140-400 MPV 9.1 FL 7.5-12.5 Neutrophils,Absolute 67373 cells/L High 8733-7175 Bands,Absolute PENDING Metamyelocytes,Absolute PENDING Myelocytes,Absolute PENDING Promyelocytes,Absolute [...] [facility] Sodium 140 mmol/L 135-[address] [place] [address] [phone] Potassium 4.0 mmol/L 3.5-5.3 Chloride 102 mmol/L [...] 1.9-3.7 A/G Ratio 1.3 1.0-2.5 Egfr Non-Afr. [place] 79 ML/MIN/1.73M2 > Or = 60 Egfr 91 ML/MIN/1.73M2 > Or = 60 Laboratory 10/22/2018 Old DO Not Use [facility] Vitamin 69 30-[address] D,25-Hydroxy,Total,Immunoassay NG/[place] [address] [phone] Laboratory 06/30/2018 Old DO Not Use [facility] Uric Acid 5.1 4.0-8.0 [address] mg/[place] [address] [phone] General 06/30/2018 Old DO Not Use [facility] TSH 3.00 0.40-4. Health [address] mIU/L 50 [place] [address] [phone] T4,Free 1.0 ng/dL 0.8-1.8 CBC W/ Diff & PLT 06/30/2018 Old DO Not Use [facility] WBC 9.1 thous/L 3.8-10.[address] [place] [address] [phone] RBC 4.94 mill/L 4.20-5.80 Hemoglobin 14.9 g/dL 13.2-17.1 Hematocrit 45.4 % 38.5-50.0 MCV 91.8 FL 80.0-100.0 MCH 30.0 pg 27.0-33.0 MCHC 32.7 g/dL 32.0-36.0 RDW 14.9 % 11.0-15.0 Platelet Count 277 thous/L 140-400 MPV 8.2 FL 7.5-12.5 Neutrophils,Absolute 7060 cells/L 8615-6769 Bands,Absolute PENDING Metamyelocytes,Absolute PENDING Myelocytes,Absolute PENDING Promyelocytes,Absolute [...] CMP W/GFR 06/30/2018 Old DO Not Use [facility] Sodium 139 mmol/L 135-[address] [place] [address] [phone] Potassium 4.4 mmol/L 3.5-5.3 Chloride 102 mmol/L [...] 1.9-3.7 A/G Ratio 1.6 1.0-2.5 Egfr Non-Afr. [place] 75 ML/MIN/1.73M2 > Or = 60 Egfr 86 ML/MIN/1.73M2 > Or = 60 Laboratory 06/30/2018 Old DO Not Use [facility] Vitamin 71 30-[address] D,25-Hydroxy,Total,Immunoassay NG/[place] [address] [phone] Lipid Panel 06/30/2018 Old DO Not Use [facility] Cholesterol 115 <[address] mg/[place] [address] [phone] HDL Cholesterol 57 mg/dL >40 Cholesterol/HDL Ratio [...] approximately 13% higher for people identified as -Kazakh. 3 FASTING 4 Therapeutic target for gout patients: <6.0 mg/dL 5 LDL-C is now calculated using the Glenn-Kevin calculation, which is a validated novel method providing better accuracy than the Friedewald equation in the estimation of LDL-C. Glenn ROBLES et al.MEG.2013;310(19):1560-4171 Desirable range <100 mg/dL for primary prevention; [...] approximately 13% higher for people identified as -Kazakh. 11 Vitamin D Status 25-OH Vitamin D: Deficiency: <20 ng/mL Insufficiency: 20-29 ng/mL Optimal: > or = 30 ng/mL For 25-OH Vitamin D testing on patients on D2-supplementation and patients for whom quantitation of D2 and D3 fractions is required, the [facility] 25-OH Vit D, (D2,D3),LC/MS/MS is recommended: Order code 18486 (patients >2 yrs). 12 Therapeutic target for [...] Viveros, 2015. Pediatric Reference Intervals, 7th Ed, [facility], 2011. 14 Reference range for high altitude clients: 18-30 mmol/L 15 GLUCOSE REFERENCE RANGE BASED ON FASTING SPECIMEN. 16 The upper reference limit for Creatinine is approximately 13% higher for people identified as -Kazakh. 17 Vitamin D Status 25-OH Vitamin D: Deficiency: <20 ng/mL Insufficiency: 20-29 ng/mL Optimal: > or = 30 ng/mL For 25-OH Vitamin D testing on patients on D2-supplementation and patients for whom quantitation of D2 and D3 fractions is required, the [facility] 25-OH Vit D, (D2,D3),LC/MS/MS is recommended: Order code 21383 (patients >2 yrs). 18 LDL-C is now calculated using the Glenn-Brown calculation, which is a validated novel method providing better accuracy than the Friedewald equation in the estimation of LDL-C. Glenn SS et al.MEG.2013;310(19):2500-7288 Desirable range <100 mg/dL for primary prevention; <70 mg/dL for patients with CHD or diabetic patients with >or= 2 CHD risk factors. For additional information, please refer to http://education.[employer].Timeful/faq/UJQ680(This link is being provided for informational/educational purposes only.) 19 For patients with diabetes plus 1 major ASCVD risk factor, treating to a non-HDL-C goal of <100 mg/dL (LDL-C of <70 mg/ dL) is considered a therapeutic option. Procedures Date Code Description Status 10/22/2018 49061 Spirometry Graphic Record/Max Voluntary Vent Completed 07/08/2018 96137 PVR-Atrerial Study Completed 07/08/2018 94965 Holter Monitor Office Completed 07/05/2018 10950 Non-Invcorrotid/Comp /Bilat Study Completed 07/05/2018 75229 Echocardiography Completed 05/22/2016 604090510 Bone Mineral Density Test Completed 02/24/2004 97292056 Colonoscopy Completed Medical Devices Description No Information Available Encounters Type Date Location Provider Dx Diagnosis Office Visit 12/07/2018 10:00a Main Office Mac Ibarra C34.91 Malignant neoplasm of unsp part of right bronchus or lung Office Visit 12/01/2018 10:00a Main Office Mca Ibarra R06.02 Shortness of breath C34.91 Malignant neoplasm of unsp part of right bronchus or lung J18.1 Lobar pneumonia, unspecified organism M75.101 Unsp rotatr-cuff tear/ruptr of right shoulder, not trauma I34.0 Nonrheumatic mitral (valve) insufficiency E78.5 Hyperlipidemia, unspecified I11.9 Hypertensive heart disease without heart failure N40.0 Benign prostatic hyperplasia without lower urinry tract symp I25.10 Athscl heart disease of [place] coronary artery w/o ang pctrs K21.9 Gastro-esophageal [...] trauma Office Visit 09/23/2018 10:00a Main Office James Ibarral M75.101 Unsp rotatr -cuff tear/ruptr of right shoulder, not trauma Office Visit 09/14/2018 10:30a Main Office James Ibarral M75.101 Unsp rotatr -cuff tear/ruptr of right shoulder, not trauma Office Visit 09/08/2018 10:30a Main Office James Ibarral M75.101 Unsp rotatr -cuff tear/ruptr of right shoulder, not trauma Office Visit 08/03/2018 10:15a Main Office Mac Ibarra I34.0 Nonrheumatic mitral (valve) insufficiency E78.5 Hyperlipidemia, unspecified 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, right ankle and foot I65.23 Occlusion and stenosis of bilateral carotid arteries I11.9 Hypertensive heart disease without heart failure N40.0 Benign prostatic hyperplasia without lower urinry tract symp I25.10 Athscl heart disease of [place] coronary artery w/o ang pctrs K21.9 Gastro-esophageal [...] without esophagitis I25.10 Athscl heart disease of [place] coronary artery w/o ang pctrs Assessments Date Code Description Provider 12/07/2018 C34.91 Malignant neoplasm of unspecified part of right Gauss, Mac bronchus or lung 12/01/2018 R06.02 Shortness of breath Mac Ibarra 12/01/2018 C34.91 Malignant neoplasm of unspecified part of right Gauss, Mac bronchus or lung 12/01/2018 J18.1 Lobar pneumonia, unspecified organism Stacey, Mac 12/01/2018 M75.101 Unspecified rotator cuff tear or rupture of right Mac Ibarra shoulder, not specified as traumatic 12/01/2018 I34.0 Nonrheumatic mitral (valve) insufficiency Stacey, Mac 12/01/2018 E78.5 Hyperlipidemia, unspecified Galio, Mac 12/01/2018 I11.9 Hypertensive heart disease without heart failure Stacey, Mac 12/01/2018 N40.0 Benign prostatic hyperplasia without lower urinary James Ibarral tract symptoms 12/01/2018 I25.10 Atherosclerotic heart disease of [place] coronary James Ibarral artery without angina pectoris 12/01/2018 K21.9 Gastro-esophageal reflux disease without esophagitis Stacey [facility] 12/01/2018 E55.9 Vitamin D deficiency, unspecified Stacey, Mac 12/01/2018 R73.01 [facility]aired [facility] 11/18/2018 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 [facility] 11/18/2018 J18.1 Lobar pneumonia, unspecified organism [facility] 11/18/2018 J44.9 Chronic obstructive pulmonary disease, unspecified [facility] 11/18/2018 M75.101 Unspecified rotator cuff tear or rupture of right Mac Ibarra shoulder, not specified as traumatic 11/18/2018 I34.0 Nonrheumatic mitral (valve) insufficiency [facility] 11/18/2018 E78.5 Hyperlipidemia, unspecified Gauss, [facility] 11/18/2018 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, [facility] 11/18/2018 I65.23 Occlusion and stenosis of bilateral carotid arteries Stacey [facility] 11/04/2018 J18.1 Lobar pneumonia, unspecified organism [facility] 11/04/2018 J44.9 Chronic obstructive pulmonary disease, unspecified [facility], [facility] 11/04/2018 M75.101 Unspecified rotator cuff tear or rupture of right Mac Ibarra shoulder, not specified as traumatic 11/04/2018 I34.0 Nonrheumatic mitral (valve) insufficiency [facility], [facility] 11/04/2018 E78.5 Hyperlipidemia, unspecified Gauss, [facility] 11/04/2018 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, right ankle and foot Stacey, Mac 11/04/2018 I65.23 Occlusion and stenosis of bilateral carotid arteries James Ibarral 10/22/2018 R06.02 [facility] 10/22/2018 J44.9 Chronic obstructive pulmonary disease, [facility] 10/22/2018 R05 Cough Stacey, [facility] 10/07/2018 M75.101 Unspecified rotator cuff tear [...] traumatic 08/03/2018 I34.0 [facility]rheumatic [facility]valve) [facility] 08/03/2018 E78.5 Hyperlipidemia, unspecified Stacey Mac 08/03/2018 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, right ankle and foot James Ibarral 08/03/2018 I65.23 Occlusion and stenosis of bilateral carotid arteries James Ibarral 08/03/2018 I11.9 [facility]pert[facility] heart disease [facility] 08/03/2018 N40.0 Benign prostatic hyperplasia without lower urinary James Ibarral tract symptoms 08/03/2018 I25.10 Atherosclerotic heart disease of [place] coronary James Ibarral artery without angina pectoris 08/03/2018 K21.9 Gastro-esophageal reflux disease without esophagitis Stacey [facility] 08/03/2018 E55.9 Vitamin D deficiency, unspecified [facility] 08/03/2018 R73.01 Impaired fasting glucose Stacey Mac 08/03/2018 J44.9 [facility], [facility] 08/03/2018 Z00.00 Encounter for general adult medical examination Mac Ibarra without abnormal findings 07/08/2018 R00.2 Palpitations James Ibarral 07/08/2018 I73.9 Peripheral vascular disease, unspecified James Ibarral 07/05/2018 I34.0 Nonrheumatic mitral (valve) insufficiency Stacey Mac 07/05/2018 I65.23 Occlusion and stenosis of bilateral carotid arteries Stacey Mac 07/01/2018 Z01.810 Encounter for preprocedural cardiovascular examination [facility] 07/01/2018 E78.5 Hyperlipidemia, unspecified Stacey Mac 07/01/2018 I11.9 Hypertensive heart disease without heart failure Stacey Mac 07/01/2018 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, right ankle and foot Stacey Mac 07/01/2018 I34.0 Nonrheumatic mitral (valve) insufficiency Ritchielio Mac 07/01/2018 N40.0 Benign prostatic hyperplasia without lower urinary Mac Ibarra tract symptoms 07/01/2018 K21.9 Gastro-esophageal reflux disease without esophagitis Stacey Mac 07/01/2018 I25.10 Atherosclerotic heart disease of [place] coronary Mac Ibarra artery without angina pectoris 06/30/2018 E78.2 Mixed hyperlipidemia Mac Ibarra Plan of Treatment Future Appointment(s):12/09/2018 9:30 am - Nurse at Main Etilnv9812/16/2018 10: 15 am - Mac Ibarra at Main Rohymq3412/07/2018 - James IbarralC34.91 Malignant neoplasm of unspecified part of right bronchus or lungComments:MAY BE CMPRESSING WHEN RECUMBANT, PLAN BX AND RX Functional Status Description No Information Available Mental Status Description No Information Available Referrals Refer to Reason for Referral Status Appt Date Pulmonary & Sleep Study Pam PT HAS A 6.9 CM NECROTIC MASS Closed [address] [place] [address] [phone] Fabiano Herrera MD URGENT Closed [address] [place] [address] [phone]
--- OUTSIDE RECORDS SUMMARY | 2018-12-11 09:42 | XMS REPORT | Continuity of Care Document ---
:1930 Author Name Tungsten Tender, System Address Unavailable Unavailable , Care Team [...] specified Unknown. Payers Medicare [place] [address] [facility] [address] [place] Group Number: NONE tel: [facility] [address] [address] [facility] [address] [place] Group Number: NONE tel: Luis M Puentes [address] [place] [id number] [place] tel:
--- OUTSIDE RECORDS SUMMARY | 2018-12-11 09:42 | XMS REPORT | Continuity of Care Document ---
:1930 External Reference #:[id number] Author Name Leonel Brown MD, [facility], [facility] (transmitted by agent of provider Ana Marinelli) Address [address] [place] [address] Care Team Providers Name Role Phone Guero Dent MD - Dermatology Care Team Information Program Support Specialist [phone] Mac Ibarra MD - Internal Care Team Information Program Support Specialist [phone] Medicine Problems Description No Information Available Social History Type Date Description Comments Sex Unknown ETOH Use Rarely consumes alcohol Tobacco Use Start: Unknown End: Patient is a former Smoke for 25 years Unknown smoker 1 pack a day quit in 85 Recreational Drug Use Denies Drug Use Smoking Status Reviewed: 12/03/18 Patient is a former Smoke for 25 years smoker 1 pack a day quit in 83 Exercise Type/Frequency Does not exercise Allergies, Adverse Reactions, Alerts Active Allergies Reaction Severity Comments Date Flonase 12/03/2018 Kassy 12/03/2018 Nasacort 12/03/2018 Pneumovax 23 12/03/2018 Sulfa Antibiotics 12/03/2018 Medications Active Medications SIG Qnty Indications Ordering Provider Date Levalbuterol HCL Inhale Contents Of Unknown 1 Vial In 0.31mg/3ML Nebulizer Nebulizer qid prn Albuterol Sulfate HFA Unknown 108(90Base) mcg/Act Aerosol Tamsulosin HCL Mac Ibarra, 0.4mg MD Capsules Omeprazole Mac Ibarra, 20mg Capsules MD DR Mcdermott Calcium Mac Ibarra, 20mg MD Tablets Indomethacin Mac Ibarra, 25mg Capsules Aspirin 81 1 by mouth every Unknown 81mg Tablets day DR Miller Description No Information Available Vital Signs Date Vital Result Comment 12/03/2018 11:02am Height 64 inches 5'4" Weight 114.00 lb Heart Rate 98 /min BP Systolic Sitting 140 mmHg BP Diastolic Sitting 80 mmHg O2 % BldC Oximetry 97 % BMI (Body Mass Index) 19.6 kg/m2 Results Description No Information Available Procedures Date Code Description Status 06/17/2018 51891 Destruction Of Benign Lesions Any Method 1-14 lesions Completed 06/17/2018 82543 Dest Lesion Each Addl Lesion 2 Through 14 Each Completed 06/17/2018 52385 Destruction ALL Benign Or Premalignant Lesion (Other Than Completed [employer] Description No Information Available Encounters Type Date Location Provider Dx Diagnosis Office Visit 06/17/2018 [facility] Dermatology AT Rosemarie Shepard, L82.1 Other seborrheic 9:00a Reginald DUBOSE keratosis D18.01 Hemangioma of skin and subcutaneous tissue L82.0 Inflamed seborrheic keratosis L53.8 Other specified erythematous conditions L29.8 Other pruritus L57.0 Actinic keratosis Assessments Date Code Description Provider 12/03/2018 J98.4 Other disorders of lung Gabi Barnes MD 12/03/2018 R06.02 Shortness of breath Gabi Barnes MD 12/03/2018 J43.9 Emphysema, unspecified Gabi Barnes MD 06/17/2018 L82.1 Other seborrheic keratosis Rosemarie Shepard MD 06/17/2018 D18.01 Hemangioma of skin and subcutaneous tissue Rosemarie Shepard MD 06/17/2018 L82.0 Inflamed seborrheic keratosis Rosemarie Shepard MD 06/17/2018 L53.8 Other specified erythematous conditions Rosemarie Shepard MD 06/17/2018 L29.8 Other pruritus Rosemarie Shepard MD 06/17/2018 L57.0 Actinic keratosis Rosemarie Shepard MD Plan of Treatment Future Appointment(s):12/13/2018 11:45 am - Gabi Barnes MD at [facility]06/23/2019 10:00 am - Rosemarie Shepard MD at [facility] Dermatology AT Rwdngyuh78/11/2019 - Gabi Barnes MDJ98.4 Other disorders of lungNew Orders:Endobronchial Ultrasound (Ebus), Ordered: 12/03/18Follow up:1 weekR06.02 Shortness of qwrxpyP10.9 Emphysema, unspecifiedNew Orders:6 Minute Walk, Ordered: 12/03/18Overnight Oximetry, Ordered: 12/03/18PFTW/Spirometry Vol Pre/Post Bronchdilat Dlco Complete, Ordered: 12/03/18 Functional Status Description No Information Available Mental Status Description No Information Available Referrals Description No Information Available
--- OUTSIDE RECORDS SUMMARY | 2018-12-11 09:42 | XMS REPORT | Continuity of Care Document ---
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 [phone] Mac Ibarra MD - Internal Care Team Information Supervisor Mechanic Boilermaking [phone] Medicine Problems Description No Information Available Social [...] Capsules Omeprazole Mac Ibarra, 20mg Capsules MD [place] Atorvastatin Calcium Mac Ibarra, 20mg MD Tablets Indomethacin Mac Ibarra, 25mg MD Capsules Aspirin 81 1 by mouth every [...] Available Procedures Date Code Description Status 06/17/2018 25044 Destruction Of Benign Lesions Any Method 1-14 lesions Completed 06/17/2018 07833 Dest Lesion Each Addl Lesion 2 Through 14 Each Completed 06/17/2018 02091 Destruction ALL Benign Or Premalignant Lesion (Other Than Completed [employer] Description No Information Available Encounters Type Date Location Provider Dx Diagnosis Office Visit 12/03/2018 Pulmonology And Gabi Barnes, J98.4 Other disorders 11:00a Sleep Services Of of lung [facility] R06.02 Shortness of breath J43.9 Emphysema, unspecified Office Visit 06/17/2018 9:00a [facility] Dermatology AT Rosemarie Shepard, L82.1 Other seborrheic Reginald DUBOSE keratosis D18.01 Hemangioma of skin and subcutaneous tissue L82.0 Inflamed seborrheic keratosis L53.8 Other specified erythematous conditions L29.8 Other pruritus L57.0 Actinic keratosis Assessments Date Code Description Provider 12/03/2018 J98.4 Other disorders of lung Gabi Barnes MD 12/03/2018 R06.02 Shortness of breath Gabi Barens MD 12/03/2018 J43.9 Emphysema, unspecified Gabi Barnes MD 06/17/2018 L82.1 Other seborrheic keratosis Rosemarie Shepard MD 06/17/2018 D18.01 Hemangioma of skin and subcutaneous tissue Rosemarie Shepard MD 06/17/2018 L82.0 Inflamed seborrheic keratosis Rosemarie Shepard MD 06/17/2018 L53.8 Other specified erythematous conditions Rosemarie Shepard MD 06/17/2018 L29.8 Other pruritus Rosemarie Shepard MD 06/17/2018 L57.0 Actinic keratosis Rosemarie Shepard MD Plan of Treatment Future Appointment(s):12/08/2018 1:00 pm - Gabi Barnes MD at [facility]12/13/2018 11:45 am - Gabi Barnes MD at [facility]06/23/2019 10:00 am - Rosemarie Shepard MD at [facility] Dermatology AT Zjswctmf60/11/2019 - Gabi Barnes MDJ98.4 Other disorders of lungNew Orders:Endobronchial Ultrasound (Ebus), Ordered: Follow up:1 weekR06.02 Shortness of zwbwazR09.9 Emphysema, unspecifiedNew Orders:6 Minute Walk, Ordered: 12/03/18Overnight Oximetry, Ordered: 12/03/18PFTW /Spirometry Vol Pre/Post Bronchdilat Dlco Complete, Ordered: 12/03/18 Functional Status Description No Information Available Mental Status Description No Information Available Referrals Description No Information Available
--- OUTSIDE RECORDS SUMMARY | 2018-12-11 09:43 | XMS REPORT | Continuity of Care Document ---
:1930 External Reference #:[id number] Author Name Mac Ibarra (transmitted by agent of provider Felecia Martinez) Address [address] [place] [address] Problems Active Problems Provider Date Benign hypertensive [...] stone Mac Ibarra Onset: 07/26/2007 Kidney stone Mac Ibarra Onset: 07/26/2007 Social History Type Date Description [...] Prilosec OTC 1 by mouth 90tabs M10.071 Stacey Mac 08/10/2017 20mg Tablets every day as DR needed Calcium Carbonate 1 PO qd Mac Ibarra 03/03/2005 600mg Tablets Tylenol Arthritis 2 PO qd prn Mac Ibarra 03/03/2005 650mg Caplets Aspirin 1 PO qd Mac Ibarra 03/03/2005 81mg Chewtabs Lipitor 1 po qd 90tabs Stacey Mac 03/03/2005 20mg Tablets History Medications Ipratropium as directed four 270ml J18.1 James Ibarral 11/04/2018 - [place]/Albuterol Sulfate times a day via 11/04/2018 nebulizer. j44.9 0.5-2.5(3)mg/3ML Solution Medications Administered in Office Medication SIG Qnty Indications Ordering Provider Date H1N1 Administration-Use Mac Ibarra 12/26/2008 Injection H1N1 Administration-Use Mac Ibarra 12/26/2008 Injection Immunizations CPT Code Status Date Vaccine Lot # [id number] Given 11/17/2017 Influenza Virus (Afluria) Split Virus 3 Years [id number] Of Age And Older Q2035 Given 12/15/2016 Influenza Virus (Afluria) Split Virus 3 Years Of Age And Older Q2037 Given 11/19/2015 Influenza Vaccine (Fluvirin) 3 Years Of Age Or [id number] Older 56687 Given 12/19/2014 Pneumococcal Conjugate Vaccine 13 Valent For [id number] Intramuscular Use Q2035 Given 2014 Influenza Virus (Afluria) Split Virus 3 Years [id number] Of Age And Older Q2037 Given 11/16/2013 Influenza Vaccine (Fluvirin) 3 Years Of Age Or Older Q2037 Given 11/16/2013 Influenza Vaccine (Fluvirin) 3 Years Of Age Or Older Q2038 Given 11/15/2012 Influenza Vaccine (Fluzone) Administered Age 3 [id number] And Older Q2037 Given 11/11/2011 Influenza Vaccine (Fluvirin) 3 Years Of Age Or [id number] Older 64240 Given 12/09/2010 Tetanus,Diphtheria,Adut/Adol Pertussis [id number] Q2036 Given 11/26/2010 Flulaval [id number] 10756 Given 04/30/2010 [place] [id number] 40959 Given 11/08/2009 Influenza Vaccine [id number] 87533 Given 10/09/2009 Zostavax [id number] 93750 Given 01/15/2009 Influenza Vaccine 77237 Given 12/08/2007 Influenza Vaccine 56849 45608 Given 11/23/2006 Influenza Vaccine 28478 75953 Given 12/02/2005 Influenza Vaccine 79894 Given 12/02/2005 Influenza Vaccine 03414 89695 Given 12/17/2004 Influenza Vaccine [id number] 87098 Given 12/17/2004 Influenza Vaccine 37130 Given 12/05/2004 Pneumovax Polyvalent Inj Im [id number] 28479 Given 12/05/2004 [place] [address] Given 11/24/1995 DT Immunization DIP/Tet (History Only) [...] H/L Range Note Comprehensive Metabolic 11/25/2018 [facility] Glucose 220 mg/dL High 65-[address] [place] [address] [phone] Urea Nitrogen (BUN) 16 mg/dL Normal 7-25 Creatinine 0.74 mg/dL Normal 0.70-1.11 2 eGFR Non-Afr. Citizen Of [place] 84 mL/min/1.73m2 Normal > Or = 60 [...] U/L Normal 9-46 Laboratory test 11/25/2018 [facility] Enhanced PDF SEE IMAGE finding [address] [place] [address] [id number] [phone] Laboratory test 10/22/2018 Old DO Not Use [facility] Uric Acid 5.0 mg/dL 4.0-8 3, [address] [place], [place] [address] [phone] Esr,Westergren 50 MM/HR High 0-20 Lipid Panel 10/22/2018 Old DO Not Use [facility] Cholesterol 115 mg/dL < [address] [place], [place] [address] [phone] HDL Cholesterol 60 mg/dL >40 Cholesterol/HDL Ratio 1.9 CALC <5.0 LDL Chol,Calculated 36 mg/dL 0-100 5 Triglycerides 102 mg/dL <150 Non-HDL Cholesterol 55 mg/dL <130 6 General Health Panel 10/22/2018 Old DO Not Use [facility] TSH 1.98 mIU/L 0.40-4.[address] [facility] [address] [place] [address] [phone] T4,Free 1.1 ng/dL 0.8-1.8 CBC W/ Diff & 10/22/2018 Old DO Not Use [facility] WBC 13.7 thous/L High 3.8-10.[address] [place] [address] [phone] RBC 4.79 mill/L 4.20-5.80 Hemoglobin 14.5 g/dL 13.2-17.1 Hematocrit 42.4 % 38.5-50.0 MCV 88.5 FL 80.0-100.0 MCH 30.3 pg 27.0-33.0 MCHC 34.2 g/dL 32.0-36.0 RDW 13.0 % 11.0-15.0 Platelet Count 287 thous/L 140-400 MPV 9.1 FL 7.5-12.5 Neutrophils,Absolute 70161 cells/L High 2530-7899 Bands,Absolute PENDING Metamyelocytes,Absolute PENDING Myelocytes,Absolute PENDING Promyelocytes,Absolute [...] [facility] Sodium 140 mmol/L 135-[address] [place] [address] [phone] Potassium 4.0 mmol/L 3.5-5.3 Chloride 102 mmol/L [...] 1.9-3.7 A/G Ratio 1.3 1.0-2.5 Egfr Non-Afr. [place] 79 ML/MIN/1.73M2 > Or = 60 Egfr 91 ML/MIN/1.73M2 > Or = 60 Laboratory 10/22/2018 Old DO Not Use [facility] Vitamin 69 30-[address] D,25-Hydroxy,Total,Immunoassay NG/[place] [address] [phone] Laboratory 06/30/2018 Old DO Not Use [facility] Uric Acid 5.1 4.0-8.[address] mg/[place] [address] [phone] General 06/30/2018 Old DO Not Use [facility] TSH 3.00 0.40-4. Health [address] mIU/L 50 [place] [address] [phone] T4,Free 1.0 ng/dL 0.8-1.8 CBC W/ Diff & PLT 06/30/2018 Old DO Not Use [facility] WBC 9.1 thous/L 3.8-10.[address] [place] [address] [phone] RBC 4.94 mill/L 4.20-5.80 Hemoglobin 14.9 g/dL 13.2-17.1 Hematocrit 45.4 % 38.5-50.0 MCV 91.8 FL 80.0-100.0 MCH 30.0 pg 27.0-33.0 MCHC 32.7 g/dL 32.0-36.0 RDW 14.9 % 11.0-15.0 Platelet Count 277 thous/L 140-400 MPV 8.2 FL 7.5-12.5 Neutrophils,Absolute 7060 cells/L [phone] Bands,Absolute PENDING Metamyelocytes,Absolute PENDING Myelocytes,Absolute PENDING Promyelocytes,Absolute [...] CMP W/GFR 06/30/2018 Old DO Not Use [facility] Sodium 139 mmol/L 135-[address] [place] [address] [phone] Potassium 4.4 mmol/L 3.5-5.3 Chloride 102 mmol/L [...] 1.9-3.7 A/G Ratio 1.6 1.0-2.5 Egfr Non-Afr. Citizen [place] 75 ML/MIN/1.73M2 > Or = 60 Egfr 86 ML/MIN/1.73M2 > Or = 60 Laboratory 06/30/2018 Old DO Not Use [facility] Vitamin 71 30-[address] D,25-Hydroxy,Total,Immunoassay NG/ML finding [place], [place] [address] [phone] Lipid Panel 06/30/2018 Old DO Not Use [facility] Cholesterol 115 <[address] mg/[place] [address] [phone] HDL Cholesterol 57 mg/dL >40 Cholesterol/HDL Ratio [...] approximately 13% higher for people identified as -Citizen Of [place]. 3 FASTING 4 Therapeutic target for gout patients: <6.0 mg/dL 5 LDL-C is now calculated using the Glenn-Kevin calculation, which is a validated novel method providing better accuracy than the Friedewald equation in the estimation of LDL-C. Glenn ROBLES et al.MEG.2013;310(19):0758-6043 Desirable range <100 mg/dL for primary prevention; [...] Viveros, 2015. Pediatric Reference Intervals, 7th Ed, [employer], 2011. 8 Reference range for high altitude clients: 18-30 mmol/L 9 GLUCOSE REFERENCE RANGE BASED ON FASTING SPECIMEN. 10 The upper reference limit for Creatinine is approximately 13% higher for people identified as -Citizen Of [place]. 11 Vitamin D Status 25-OH Vitamin D: Deficiency: <20 ng/mL Insufficiency: 20-29 ng/mL Optimal: > or = 30 ng/mL For 25-OH Vitamin D testing on patients on D2-supplementation and patients for whom quantitation of D2 and D3 fractions is required, the [facility] 25-OH Vit D, (D2,D3),LC/MS/MS is recommended: Order code 08942 (patients >2 yrs). 12 Therapeutic target for [...] Viveros, 2015. Pediatric Reference Intervals, 7th Ed, [facility] [employer], 2011. 14 Reference range for high altitude clients: 18-30 mmol/L 15 GLUCOSE REFERENCE RANGE BASED ON FASTING SPECIMEN. 16 The upper reference limit for Creatinine is approximately 13% higher for people identified as -Citizen Of [place]. 17 Vitamin D Status 25-OH Vitamin D: Deficiency: <20 ng/mL Insufficiency: 20-29 ng/mL Optimal: > or = 30 ng/mL For 25-OH Vitamin D testing on patients on D2-supplementation and patients for whom quantitation of D2 and D3 fractions is required, the [facility] 25-OH Vit D, (D2,D3),LC/MS/MS is recommended: Order code 69816 (patients >2 yrs). 18 LDL-C is now calculated using the Glenn-Brown calculation, which is a validated novel method providing better accuracy than the Friedewald equation in the estimation of LDL-C. Glenn SS et al.MEG.2013;310(19):9406-2636 Desirable range <100 mg/dL for primary prevention; <70 mg/dL for patients with CHD or diabetic patients with >or= 2 CHD risk factors. For additional information, please refer to http://education.The Grommet.BuyItRideIt/faq/NSI741(This link is being provided for informational/educational purposes only.) 19 For patients with diabetes plus 1 major ASCVD risk factor, treating to a non-HDL-C goal of <100 mg/dL (LDL-C of <70 mg/ dL) is considered a therapeutic option. Procedures Date Code Description Status 10/22/2018 75706 Spirometry Graphic Record/Max Voluntary Vent Completed 07/08/2018 98068 PVR-Atrerial Study Completed 07/08/2018 38390 Holter Monitor Office Completed 07/05/2018 56913 Non-Invcorrotid/Comp /Bilat Study Completed 07/05/2018 92907 Echocardiography Completed 05/22/2016 922442606 Bone Mineral Density Test Completed 02/24/2004 11072380 Colonoscopy Completed Medical Devices Description No Information Available Encounters Type Date Location Provider Dx Diagnosis Office Visit 11/18/2018 10:30a Main Office Mac [...] arteries Office Visit 11/04/2018 10:00a Main Office aMc Ibarra J18.1 Lobar pneumonia, unspecified organism J44.9 [...] tract symp 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 K21.9 Gastro-esophageal [...] without esophagitis 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 Assessments Date Code Description Provider 11/18/2018 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 Stacey, Mac 11/18/2018 J18.1 Lobar pneumonia, unspecified organism Galio, Mac 11/18/2018 J44.9 Chronic obstructive pulmonary disease, unspecified Galio, Mac 11/18/2018 M75.101 Unspecified rotator cuff tear or rupture of right Mac Ibarra shoulder, not specified as traumatic 11/18/2018 I34.0 Nonrheumatic mitral (valve) insufficiency Stacey, Mac 11/18/2018 E78.5 Hyperlipidemia, unspecified Gauss, Mac 11/18/2018 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, right ankle and foot Stacey, Mac 11/18/2018 I65.23 Occlusion and stenosis of bilateral carotid arteries Stacey , Mac 11/04/2018 J18.1 Lobar pneumonia, unspecified organism Stacey, Mac 11/04/2018 J44.9 Chronic obstructive pulmonary disease, unspecified Gauss, Mac 11/04/2018 M75.101 Unspecified rotator cuff tear or rupture of right Mac Ibarra shoulder, not specified as traumatic 11/04/2018 I34.0 Nonrheumatic mitral (valve) insufficiency Galio, Mac 11/04/2018 E78.5 Hyperlipidemia, unspecified James Ibarral 11/04/2018 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, right ankle and foot Stacey, Mac 11/04/2018 I65.23 Occlusion and stenosis of bilateral carotid arteries James Ibarral 10/22/2018 R06.02 Shortness of breath James Ibarral 10/22/2018 J44.9 [facility], [facility] 10/[facility]2018 R05 Cough Stacey [facility] 10/07/2018 M75.101 Unspecified rotator cuff tear [...] traumatic 08/03/2018 I34.0 Nonrheumatic mitral (valve) insufficiency Stacey [facility] 08/03/2018 E78.5 Hyperlipidemia, unspecified James Ibarral 08/03/2018 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, right ankle and foot James Ibarral 08/03/2018 I65.23 Occlusion and stenosis of bilateral carotid arteries James Ibarral 08/03/2018 I11.9 Hypertensive heart disease without heart failure Stacey Mac 08/03/2018 N40.0 Benign prostatic hyperplasia without lower urinary James Ibarral tract symptoms 08/03/2018 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 08/03/2018 K21.9 Gastro-esophageal reflux disease without esophagitis Stacey [facility] 08/03/2018 E55.9 Vitamin D deficiency, unspecified [facility] 08/03/2018 R73.01 Impaired fasting glucose James Ibarral 08/03/2018 J44.9 Chronic obstructive pulmonary disease, [facility] 08/03/2018 Z00.00 Encounter for general adult medical examination Mac Ibarra without abnormal findings 07/08/2018 R00.2 Palpitations James Ibarral 07/08/2018 I73.9 Peripheral vascular disease, unspecified Ritchielio Mac 07/05/2018 I34.0 Nonrheumatic mitral (valve) insufficiency Stacey Mac 07/05/2018 I65.23 Occlusion and stenosis of bilateral carotid arteries Stacey Mac 07/01/2018 Z01.810 Encounter for preprocedural cardiovascular examination RitchieMac vaca 07/01/2018 E78.5 Hyperlipidemia, unspecified Mac Ibarra 07/01/2018 I11.9 Hypertensive heart disease without heart failure Mac Ibarra 07/01/2018 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, right ankle and foot Ritchielio Mac 07/01/2018 I34.0 Nonrheumatic mitral (valve) insufficiency Ritchielio Mac 07/01/2018 N40.0 Benign prostatic hyperplasia without lower urinary Mac Ibarra tract symptoms 07/01/2018 K21.9 Gastro-esophageal reflux disease without esophagitis Stacey Mac 07/01/2018 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 Enviromental factors that can spark exacerbations reviewed. The necessity of reporting any changes in condition, early intervention in exacerbations and proper useand the importance of compliance with medications. Reports if applicable of home care providers, and equipment suppliers and Respiratory Therapy reviewed.M75.101 Unspecified rotator cuff tear or rupture of right shoulder, not specified as traumaticComments:Discussed local measures and modalities of treatment as indicated including medications and side effects, stretching, exercise, local application of heat and ice packs , etc. Referral as needed and follow up [...] Patient education including dietary guidelines and materials provided.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, right ankle and footI65.23 Occlusion and stenosis of bilateral carotid arteriesComments: Discussed role of life style choices in dietary fats and exercise plays on evolution of torres martinez disease and importance of controlling cholesterol. Medications role and side effects in disease progression prevention discussed and need for compliance with prescribed treatment. Follow up testing for progression such as ultrasound surveillance reviewed Functional Status Description No Information Available Mental Status Description No Information Available Referrals Description No Information Available
--- OUTSIDE RECORDS SUMMARY | 2018-12-11 09:43 | XMS REPORT | Continuity of Care Document ---
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 Mac Ibarra Onset: 02/14 heart failure Osteochondropathy Mac Ibarra Onset: 02/14/2005 Peripheral vascular disease Mac Ibarra Onset: 02/14/2005 Senile osteoporosis Mac Ibarra Onset: 02/14/2005 Conduction disorder of the heart Mac Ibarra Onset: 02/14/2005 Congenital insufficiency of mitral valve Mca Ibarra Onset: 07/26/2007 Carotid artery occlusion Mac Ibarra Onset: 07/26/2007 Palpitations Mac Ibarra Onset: 07/26/2007 Hyperlipidemia Mac Ibarra Onset: 07/26/2007 Osteoporosis Mac Ibarra Onset: 07/26/2007 Gastroesophageal reflux disease Mac Ibarra Onset: 07/26/2007 Coronary arteriosclerosis Mac Ibarra Onset: 07/26/2007 Thrombosed internal hemorrhoids Mac Ibarra Onset: 07/26/2007 Kidney stone aMc Ibarra Onset: 07/26/2007 Kidney stone Stacey Mac [...] four 270ml J18.1 James Ibarral 11/04/2018 - [place]/Albuterol Sulfate times a day via 11/04/2018 nebulizer. j44.9 0.5-2.5(3)mg/3ML Solution Medications Administered in Office Medication SIG Qnty Indications Ordering Provider Date H1N1 Administration-Use Mac Ibarra 12/26/2008 Injection H1N1 Administration-Use Mac Ibarra 12/26/2008 Injection Immunizations CPT Code Status Date Vaccine Lot # [id number] Given 11/17/2017 Influenza Virus (Afluria) Split Virus 3 Years [id number] Of Age And Older Q2035 Given 12/15/2016 Influenza Virus (Afluria) Split Virus 3 Years Of Age And Older Q2037 Given 11/19/2015 Influenza Vaccine (Fluvirin) 3 Years Of Age Or [id number] Older 50675 Given 12/19/2014 Pneumococcal Conjugate Vaccine 13 Valent For [id number] Intramuscular Use Q2035 Given 2014 Influenza Virus (Afluria) Split Virus 3 Years [id number] Of Age And Older Q2037 Given 11/16/2013 Influenza Vaccine (Fluvirin) 3 Years Of Age Or Older Q2037 Given 11/16/2013 Influenza Vaccine (Fluvirin) 3 Years Of Age Or Older Q2038 Given 11/15/2012 Influenza Vaccine (Fluzone) Administered Age 3 [id number] And Older Q2037 Given 11/11/2011 Influenza Vaccine (Fluvirin) 5 Years Of Age Or [id number] Older 93779 Given 12/09/2010 Tetanus,Diphtheria,Adut/Adol Pertussis [id number] Q2036 Given 11/26/2010 Flulaval [id number] 87371 Given 04/30/2010 [place] [id number] 44401 Given 11/08/2009 Influenza Vaccine [id number] 49900 Given 10/09/2009 Zostavax [id number] 50084 Given 01/15/2009 Influenza Vaccine 60821 Given 12/08/2007 Influenza Vaccine 25012 62769 Given 11/23/2006 Influenza Vaccine [id number] 81874 Given 12/02/2005 Influenza Vaccine 88384 Given 12/02/2005 Influenza Vaccine [id number] 13241 Given 12/17/2004 Influenza Vaccine [id number] 87008 Given 12/17/2004 Influenza Vaccine 80736 Given 12/05/2004 Pneumovax Polyvalent Inj Im [id number] 72653 Given 12/05/2004 [place] [address] Given 11/24/1995 DT Immunization DIP/Tet (History Only) Vital Signs Date Vital Result Comment 11/18/2018 10:13am BP Systolic 170 mmHg BP Diastolic 88 mmHg Heart Rate 99 /min Weight 114.00 lb O2 % BldC Oximetry 96 % 11/04/2018 10:12am BP Systolic 163 mmHg BP Diastolic 97 mmHg Heart Rate 104 /min Weight 118.00 lb Results Test Date Facility Test Result H/L Range Note Comprehensive Metabolic 11/25/2018 [facility] Glucose 220 mg/dL High 65-99 1 Panel [address] [place], [place] [id number] [phone] Urea Nitrogen (BUN) 16 mg/dL Normal 7-25 Creatinine 0.74 mg/dL Normal 0.70-1.11 2 eGFR Non-Afr. [place] 84 mL/min/1.73m2 Normal > Or = 60 [...] U/L Normal 9-46 Laboratory test 11/25/2018 [facility] Enhanced PDF SEE IMAGE finding [address] [place] [address] [id number] [phone] Laboratory test 10/22/2018 Old DO Not Use [facility] Uric Acid 5.0 mg/dL 4.0-8 3, [address] [place] [address] [phone] Esr,Westergren 50 MM/HR High 0-20 Lipid Panel 10/22/2018 Old DO Not Use [facility] Cholesterol 115 mg/dL < [address] [place], [place] [id number] [phone] HDL Cholesterol 60 mg/dL >40 Cholesterol/HDL Ratio 1.9 CALC <5.0 LDL Chol,Calculated 36 mg/dL 0-100 5 Triglycerides 102 mg/dL <150 Non-HDL Cholesterol 55 mg/dL <130 6 General Health Panel 10/22/2018 Old DO Not Use [facility] TSH 1.98 mIU/L 0.40-4.[address] [facility] [address] [place] [address] [phone] T4,Free 1.1 ng/dL 0.8-1.8 CBC W/ Diff & 10/22/2018 Old DO Not Use [facility] WBC 13.7 thous/L High 3.8-10.[address] [place] [address] [phone] RBC 4.79 mill/L 4.20-5.80 Hemoglobin 14.5 g/dL 13.2-17.1 Hematocrit 42.4 % 38.5-50.0 MCV 88.5 FL 80.0-100.0 MCH 30.3 pg 27.0-33.0 MCHC 34.2 g/dL 32.0-36.0 RDW 13.0 % 11.0-15.0 Platelet Count 287 thous/L 140-400 MPV 9.1 FL 7.5-12.5 Neutrophils,Absolute 08697 cells/L High [phone] Bands,Absolute PENDING Metamyelocytes,Absolute PENDING Myelocytes,Absolute PENDING Promyelocytes,Absolute [...] [facility] Sodium 140 mmol/L 135-[address] [place] [address] [phone] Potassium 4.0 mmol/L 3.5-5.3 Chloride 102 mmol/L [...] 1.9-3.7 A/G Ratio 1.3 1.0-2.5 Egfr Non-Afr. [place] 79 ML/MIN/1.73M2 > Or = 60 Egfr 91 ML/MIN/1.73M2 > Or = 60 Laboratory 10/22/2018 Old DO Not Use [facility] Vitamin 69 30-[address] D,25-Hydroxy,Total,Immunoassay NG/[place] [address] [phone] Laboratory 06/30/2018 Old DO Not Use [facility] Uric Acid 5.1 4.0-8.0 [address] mg/[place] [address] [phone] General 06/30/2018 Old DO Not Use [facility] TSH 3.00 0.40-4. Health [address] mIU/L 50 [place] [address] [phone] T4,Free 1.0 ng/dL 0.8-1.8 CBC W/ Diff & PLT 06/30/2018 Old DO Not Use [facility] WBC 9.1 thous/L 3.8-10.[address] [place] [address] [phone] RBC 4.94 mill/L 4.20-5.80 Hemoglobin 14.9 g/dL 13.2-17.1 Hematocrit 45.4 % 38.5-50.0 MCV 91.8 FL 80.0-100.0 MCH 30.0 pg 27.0-33.0 MCHC 32.7 g/dL 32.0-36.0 RDW 14.9 % 11.0-15.0 Platelet Count 277 thous/L 140-400 MPV 8.2 FL 7.5-12.5 Neutrophils,Absolute 7060 cells/L [phone] Bands,Absolute PENDING Metamyelocytes,Absolute PENDING Myelocytes,Absolute PENDING Promyelocytes,Absolute [...] CMP W/GFR 06/30/2018 Old DO Not Use [facility] Sodium 139 mmol/L 135-[address] [place] [address] [phone] Potassium 4.4 mmol/L 3.5-5.3 Chloride 102 mmol/L [...] 1.9-3.7 A/G Ratio 1.6 1.0-2.5 Egfr Non-Afr. [place] 75 ML/MIN/1.73M2 > Or = 60 Egfr 86 ML/MIN/1.73M2 > Or = 60 Laboratory 06/30/2018 Old DO Not Use [facility] Vitamin 71 30-[address] D,25-Hydroxy,Total,Immunoassay NG/[place] [address] [phone] Lipid Panel 06/30/2018 Old DO Not Use [facility] Cholesterol 115 <[address] mg/[place] [address] [phone] HDL Cholesterol 57 mg/dL >40 Cholesterol/HDL Ratio [...] approximately 13% higher for people identified as -[place] African. 3 FASTING 4 Therapeutic target for gout patients: <6.0 mg/dL 5 LDL-C is now calculated using the Glenn-Kevin calculation, which is a validated novel method providing better accuracy than the Friedewald equation in the estimation of LDL-C. Glenn ROBLES et al.MEG.2013;310(19):5345-5224 Desirable range <100 mg/dL for primary prevention; [...] approximately 13% higher for people identified as -[place]. 11 Vitamin D Status 25-OH Vitamin D: Deficiency: <20 ng/mL Insufficiency: 20-29 ng/mL Optimal: > or = 30 ng/mL For 25-OH Vitamin D testing on patients on D2-supplementation and patients for whom quantitation of D2 and D3 fractions is required, the [facility] 25-OH Vit D, (D2,D3),LC/MS/MS is recommended: Order code 04662 (patients >2 yrs). 12 Therapeutic target for [...] Viveros, 2015. Pediatric Reference Intervals, 7th Ed, [facility] Press, 2011. 14 Reference range for high altitude clients: 18-30 mmol/L 15 GLUCOSE REFERENCE RANGE BASED ON FASTING SPECIMEN. 16 The upper reference limit for Creatinine is approximately 13% higher for people identified as -[place]. 17 Vitamin D Status 25-OH Vitamin D: Deficiency: <20 ng/mL Insufficiency: 20-29 ng/mL Optimal: > or = 30 ng/mL For 25-OH Vitamin D testing on patients on D2-supplementation and patients for whom quantitation of D2 and D3 fractions is required, the [facility] 25-OH Vit D, (D2,D3),LC/MS/MS is recommended: Order code 45765 (patients >2 yrs). 18 LDL-C is now calculated using the Glenn-Brown calculation, which is a validated novel method providing better accuracy than the Friedewald equation in the estimation of LDL-C. Glenn SS et al.MEG.2013;310(19):5789-3768 Desirable range <100 mg/dL for primary prevention; <70 mg/dL for patients with CHD or diabetic patients with >or= 2 CHD risk factors. For additional information, please refer to http://education.Sensorist/faq/BAI720(This link is being provided for informational/educational purposes only.) 19 For patients with diabetes plus 1 major ASCVD risk factor, treating to a non-HDL-C goal of <100 mg/dL (LDL-C of <70 mg/ dL) is considered a therapeutic option. Procedures Date Code Description Status 10/22/2018 22358 Spirometry Graphic Record/Max Voluntary Vent Completed 07/08/2018 69975 PVR-Atrerial Study Completed 07/08/2018 50803 Holter Monitor Office Completed 07/05/2018 43890 Non-Invcorrotid/Comp /Bilat Study Completed 07/05/2018 80490 Echocardiography Completed 05/22/2016 699294513 Bone Mineral Density Test Completed 02/24/2004 29098672 Colonoscopy Completed Medical Devices Description No Information [...] tract symp I25.10 Athscl heart disease of [place] coronary artery w/o ang pctrs K21.9 Gastro-esophageal [...] without esophagitis I25.10 Athscl heart disease of [place] coronary artery w/o ang pctrs Assessments Date Code Description Provider 11/18/2018 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 Gauss, Mac 11/18/2018 J18.1 Lobar pneumonia, unspecified organism Gauss, Mac 11/18/2018 J44.9 Chronic obstructive pulmonary disease, unspecified Gauss, Mac 11/18/2018 M75.101 Unspecified rotator cuff tear or rupture of right James Ibarral shoulder, not specified as traumatic 11/18/2018 I34.0 Nonrheumatic mitral (valve) insufficiency Gauss, Mac 11/18/2018 E78.5 Hyperlipidemia, unspecified Gauss, Mac 11/18/2018 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, right ankle and foot Gauss, Mac 11/18/2018 I65.23 Occlusion and stenosis of bilateral carotid arteries Gauss , Mac 11/04/2018 J18.1 Lobar pneumonia, unspecified organism Gauss, Mac 11/04/2018 J44.9 Chronic obstructive pulmonary disease, unspecified Gauss, Mac 11/04/2018 M75.101 Unspecified rotator cuff tear or rupture of right James Ibarral shoulder, not specified as traumatic 11/04/2018 I34.0 Nonrheumatic mitral (valve) insufficiency Gauss, Mac 11/04/2018 E78.5 Hyperlipidemia, unspecified Gauss, Mac 11/04/2018 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, right ankle and foot James Ibarral 11/04/2018 I65.23 Occlusion and stenosis of bilateral carotid arteries James Ibarral 10/22/2018 R06.02 Shortness of breath Stacey Mac 10/22/2018 J44.9 Chronic obstructive pulmonary disease, unspecified Stacey Mac 10/22/2018 R05 Cough Stacey [facility] 10/07/2018 M75.101 Unspecified rotator cuff tear or [...] traumatic 08/03/2018 I34.0 Nonrheumatic mitral (valve) insufficiency James Ibarral 08/03/2018 E78.5 Hyperlipidemia, unspecified James Ibarral 08/03/2018 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 R73.01 Impaired fasting glucose James Ibarral 08/03/2018 J44.9 [facility], [facility] Z00.00 Encounter for general adult medical examination Mac Ibarra without abnormal findings 07/08/2018 R00.2 Palpitations James Ibarral 07/08/2018 I73.9 Peripheral vascular disease, unspecified Mac Ibarra 07/05/2018 I34.0 Nonrheumatic mitral (valve) insufficiency Mac Ibarra 07/05/2018 I65.23 Occlusion and stenosis of bilateral carotid arteries James Ibarral 07/01/2018 Z01.810 Encounter for preprocedural cardiovascular examination James Ibarral 07/01/2018 E78.5 Hyperlipidemia, unspecified James Ibarral 07/01/2018 I11.9 Hypertensive heart disease without heart failure Stacey Mac 07/01/2018 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, right ankle and foot Stacey Mac 07/01/2018 I34.0 Nonrheumatic mitral (valve) insufficiency Mac Ibarra 07/01/2018 N40.0 Benign prostatic hyperplasia without lower urinary Mac Ibarra tract symptoms 07/01/2018 K21.9 Gastro-esophageal reflux disease without esophagitis James Ibarral 07/01/2018 I25.10 Atherosclerotic heart disease of [place] coronary Mac Ibarra artery without angina pectoris 06/30/2018 E78.2 Mixed hyperlipidemia Mac Ibarra Plan of Treatment Future Appointment(s):12/09/2018 9:30 am - [facility] at [facility] [id number]/16/2018 10: 15 am - Mac Ibarra at [facility] [id number]/18/2018 - Jai Ibarra79.89 Secondary malignant neoplasm of [...] fats and exercise plays on evolution of [place] disease and importance of controlling cholesterol. Medications role and side effects in disease progression prevention discussed and need for compliance with prescribed treatment. Follow up testing for progression such as ultrasound surveillance reviewed Functional Status Description No Information Available Mental Status Description No Information Available Referrals Description No Information Available
--- OUTSIDE RECORDS SUMMARY | 2018-12-11 09:43 | XMS REPORT | Continuity of Care Document ---
:1930 External Reference #:[id number] Author Name StaceyJamesl (transmitted by agent of provider Tammy Pike) Address [address] [place] [address] Problems Active Problems Provider Date Benign hypertensive [...] Prilosec OTC 1 by mouth 90tabs M10.071 [facility] Mac 08/10/2017 20mg Tablets every day as DR needed Calcium Carbonate 1 PO qd Mac Ibarra 03/03/2005 600mg Tablets Tylenol Arthritis 2 PO qd prn James Ibarral 03/03/2005 650mg Caplets Aspirin 1 PO qd James Ibarral 03/03/2005 81mg Chewtabs Lipitor 1 po qd 90tabs Stacey Mac 03/03/2005 20mg Tablets History Medications Ipratropium as directed four 270ml J18.1 Stacey Mac 11/04/2018 - [place]/Albuterol Sulfate times a day via 11/04/2018 nebulizer. j44.9 0.5-2.5(3)mg/3ML Solution Medications Administered in Office Medication SIG Qnty Indications Ordering Provider Date H1N1 Administration-Use Mac Ibarra 12/26/2008 Injection H1N1 Administration-Use Mac Ibarra 12/26/2008 Injection Immunizations CPT Code Status Date Vaccine Lot # [id number] Given 11/17/2017 Influenza Virus (Afluria) Split Virus 3 Years [id number] Of Age And Older Q2035 Given 12/15/2016 Influenza Virus (Afluria) Split Virus 3 Years Of Age And Older Q2037 Given 11/19/2015 Influenza Vaccine (Fluvirin) 3 Years Of Age Or [id number] Older 54526 Given 12/19/2014 Pneumococcal Conjugate Vaccine 13 Valent For [id number] Intramuscular Use Q2035 Given 2014 Influenza Virus (Afluria) Split Virus 3 Years [id number] Of Age And Older Q2037 Given 11/16/2013 Influenza Vaccine (Fluvirin) 3 Years Of Age Or Older Q2037 Given 11/16/2013 Influenza Vaccine (Fluvirin) 3 Years Of Age Or Older Q2038 Given 11/15/2012 Influenza Vaccine (Fluzone) Administered Age 3 [id number] And Older Q2037 Given 11/11/2011 Influenza Vaccine (Fluvirin) 5 Years Of Age Or [id number] Older 15592 Given 12/09/2010 Tetanus,Diphtheria,Adut/Adol Pertussis [id number] Q2036 Given 11/26/2010 Flulaval [id number] 37132 Given 04/30/2010 [place] [id number] 63983 Given 11/08/2009 Influenza Vaccine [id number] 73102 Given 10/09/2009 Zostavax [id number] 62328 Given 01/15/2009 Influenza Vaccine 06037 Given 12/08/2007 Influenza Vaccine [id number] 29497 Given 11/23/2006 Influenza Vaccine [id number] 42996 Given 12/02/2005 Influenza Vaccine 30392 Given 12/02/2005 Influenza Vaccine 36189 31803 Given 12/17/2004 Influenza Vaccine [id number] 71573 Given 12/17/2004 Influenza Vaccine 77480 Given 12/05/2004 Pneumovax Polyvalent Inj Im [id number] 42614 Given 12/05/2004 [place] [address] Given 11/24/1995 DT Immunization DIP/Tet (History Only) Vital Signs Date Vital Result Comment 11/18/2018 10:13am BP Systolic 170 mmHg BP Diastolic 88 mmHg Heart Rate 99 /min Weight 114.00 lb O2 % BldC Oximetry 96 % 11/04/2018 10:12am BP Systolic 163 mmHg BP Diastolic 97 mmHg Heart Rate 104 /min Weight 118.00 lb Results Test Date Facility Test Result H/L Range Note Laboratory test 10/22/2018 Old DO Not Use [facility] Uric Acid 5.0 mg/dL 4.0-8.0 1, [address] [place] [address] [phone] Esr,[place] 50 MM/HR High 0-20 Lipid Panel 10/22/2018 Old DO Not Use [facility] Cholesterol 115 mg/dL < [address] [place] [address] [phone] HDL Cholesterol 60 mg/dL >40 Cholesterol/HDL Ratio 1.9 CALC <5.0 LDL Chol,Calculated 36 mg/dL 0-100 3 Triglycerides 102 mg/dL <150 Non-HDL Cholesterol 55 mg/dL <130 4 General Health Panel 10/22/2018 Old DO Not Use [facility] TSH 1.98 mIU/L 0.40-4.[address] [facility] [address] [place] [address] [phone] T4,Free 1.1 ng/dL 0.8-1.8 CBC W/ Diff & 10/22/2018 Old DO Not Use [facility] WBC 13.7 thous/L High 3.8-10.[address] [place] [address] [phone] RBC 4.79 mill/L 4.20-5.80 Hemoglobin 14.5 g/dL 13.2-17.1 Hematocrit 42.4 % 38.5-50.0 MCV 88.5 FL 80.0-100.0 MCH 30.3 pg 27.0-33.0 MCHC 34.2 g/dL 32.0-36.0 RDW 13.0 % 11.0-15.0 Platelet Count 287 thous/L 140-400 MPV 9.1 FL 7.5-12.5 Neutrophils,Absolute 12384 cells/L High 5521-8749 Bands,Absolute PENDING Metamyelocytes,Absolute PENDING Myelocytes,Absolute PENDING Promyelocytes,Absolute [...] 1.7 % 0-4 Basophils,% 0.4 % 0-1 5 Blasts,% PENDING Nucleated RBC PENDING Comment PENDING CMP W/GFR 10/22/2018 Old DO Not Use [facility] Sodium 140 mmol/L 135-[address] [place] [address] [phone] Potassium 4.0 mmol/L 3.5-5.3 Chloride 102 mmol/L 98-110 Carbon Dioxide 28 mmol/L 20-32 6 Calcium 9.4 mg/dL 8.6-10.3 Alkaline Phosphatase 124 U/L High 40-115 Ast 14 U/L 10-35 Alt 11 U/L 9-46 Bilirubin,Total 0.4 mg/dL 0.2-1.2 Glucose 112 mg/dL High 65-99 7 Urea Nitrogen (BUN) 16 mg/dL 7-25 Creatinine 0.87 mg/dL 0.70-1.11 8 BUN/Creatinine Ratio 18.3 6-22 Protein,Total 6.6 g/dL 6.1-8.1 Albumin 3.7 g/dL 3.6-5.1 Globulin,Calculated 2.9 g/dL 1.9-3.7 A/G Ratio 1.3 1.0-2.5 Egfr Non-Afr. [place] 79 ML/MIN/1.73M2 > Or = 60 Egfr 91 ML/MIN/1.73M2 > Or = 60 Laboratory 10/22/2018 Old DO Not Use [facility] Vitamin 69 30-[address] D,25-Hydroxy,Total,Immunoassay NG/[place] [address] [phone] Laboratory 06/30/2018 Old DO Not Use [facility] Uric Acid 5.1 4.0-8.0 [address] mg/[place] [address] [phone] General 06/30/2018 Old DO Not Use [facility] TSH 3.00 0.40-4. Health [address] mIU/L 50 [place] [address] [phone] T4,Free 1.0 ng/dL 0.8-1.8 CBC W/ Diff & PLT 06/30/2018 Old DO Not Use [facility] WBC 9.1 thous/L 3.8-10.[address] [place] [address] [phone] RBC 4.94 mill/L 4.20-5.80 Hemoglobin 14.9 g/dL 13.2-17.1 Hematocrit 45.4 % 38.5-50.0 MCV 91.8 FL 80.0-100.0 MCH 30.0 pg 27.0-33.0 MCHC 32.7 g/dL 32.0-36.0 RDW 14.9 % 11.0-15.0 Platelet Count 277 thous/L 140-400 MPV 8.2 FL 7.5-12.5 Neutrophils,Absolute 7060 cells/L 8159-2218 Bands,Absolute PENDING Metamyelocytes,Absolute PENDING Myelocytes,Absolute PENDING Promyelocytes,Absolute [...] 2 % 0-4 Basophils,% 0 % 0-1 11 Blasts,% PENDING Nucleated RBC PENDING Comment PENDING CMP W/GFR 06/30/2018 Old DO Not Use [facility] Sodium 139 mmol/L 135-[address] [place] [address] [phone] Potassium 4.4 mmol/L 3.5-5.3 Chloride 102 mmol/L 98-110 Carbon Dioxide 29 mmol/L 20-32 12 Calcium 9.3 mg/dL 8.6-10.3 Alkaline Phosphatase 101 U/L 40-115 Ast 17 U/L 10-35 Alt 13 U/L 9-46 Bilirubin,Total 0.6 mg/dL 0.2-1.2 Glucose 100 mg/dL High 65-99 13 Urea Nitrogen (BUN) 16 mg/dL 7-25 Creatinine 0.93 mg/dL 0.70-1.11 14 BUN/Creatinine Ratio 17.4 6-22 Protein,Total 6.7 g/dL 6.1-8.1 Albumin 4.2 g/dL 3.6-5.1 Globulin,Calculated 2.5 g/dL 1.9-3.7 A/G Ratio 1.6 1.0-2.5 Egfr Non-Afr. [place] 75 ML/MIN/1.73M2 > Or = 60 Egfr 86 ML/MIN/1.73M2 > Or = 60 Laboratory 06/30/2018 Old DO Not Use [facility] Vitamin 71 30-[address] D,25-Hydroxy,Total,Immunoassay NG/[place] [address] [phone] Lipid Panel 06/30/2018 Old DO Not Use [facility] Cholesterol 115 <[address] mg/[place] [address] [phone] HDL Cholesterol 57 mg/dL >40 Cholesterol/HDL Ratio 2.0 CALC <5.0 LDL Chol,Calculated 39 mg/dL 0-100 16 Triglycerides 105 mg/dL <150 Non-HDL Cholesterol 58 mg/dL <130 17 1 FASTING 2 Therapeutic target for gout patients: <6.0 mg/dL 3 LDL-C is now calculated using the Gelnn-Kevin calculation, which is a validated novel method providing better accuracy than the Friedewald equation in the estimation of LDL-C. Glenn SS et al.MEG.2013;310(19):3513-6935 Desirable range <100 mg/dL for primary prevention; <70 mg/dL for patients with CHD or diabetic patients with >or= 2 CHD risk factors. 4 For patients with diabetes plus 1 major ASCVD risk factor, treating to a non-HDL-C goal of <100 mg/dL (LDL-C of <70 mg/ dL) is considered a therapeutic option. 5 Relative blood cell counts (%) should be compared with absolute cell counts (cells/mcL). Relative counts may not be clinically meaningful if the absolute count of one or more cell type is decreased. Reference ranges for relative cell counts derived from: A Manual of Laboratory and Diagnostics Tests, 9th Ed, Sesar Nabil & Viveros, 2015. Pediatric Reference Intervals, 7th Ed, [employer], 2011. 6 Reference range for high altitude clients: 18-30 mmol/L 7 GLUCOSE REFERENCE RANGE BASED ON FASTING SPECIMEN. 8 The upper reference limit for Creatinine is approximately 13% higher for people identified as -Guamanian. 9 Vitamin D Status 25-OH Vitamin D: Deficiency: <20 ng/mL Insufficiency: 20-29 ng/mL Optimal: > or = 30 ng/mL For 25-OH Vitamin D testing on patients on D2-supplementation and patients for whom quantitation of D2 and D3 fractions is required, the [facility] 25-OH Vit D, (D2,D3),LC/MS/MS is recommended: Order code 41672 (patients >2 yrs). 10 Therapeutic target for gout patients: <6.0 mg/dL 11 Relative blood cell counts (%) should be compared with absolute cell counts (cells/mcL). Relative counts may not be clinically meaningful if the absolute count of one or more cell type is decreased. Reference ranges for relative cell counts derived from: A Manual of Laboratory and Diagnostics Tests, 9th Ed, Sesar Nabil & Viveros, 2015. Pediatric Reference Intervals, 7th Ed, [employer], 2011. 12 Reference range for high altitude clients: 18-30 mmol/L 13 GLUCOSE REFERENCE RANGE BASED ON FASTING SPECIMEN. 14 The upper reference limit for Creatinine is approximately 13% higher for people identified as -Gu[place]ian. 15 Vitamin D Status 25-OH Vitamin D: Deficiency: <20 ng/mL Insufficiency: 20-29 ng/mL Optimal: > or = 30 ng/mL For 25-OH Vitamin D testing on patients on D2-supplementation and patients for whom quantitation of D2 and D3 fractions is required, the [facility] 25-OH Vit D, (D2,D3),LC/MS/MS is recommended: Order code 41837 (patients >2 yrs). 16 LDL-C is now calculated using the Glenn-Brown calculation, which is a validated novel method providing better accuracy than the Friedewald equation in the estimation of LDL-C. Glenn SS et al.MEG.2013;310(19):0560-7898 Desirable range <100 mg/dL for primary prevention; <70 mg/dL for patients with CHD or diabetic patients with >or= 2 CHD risk factors. For additional information, please refer to http://education.[employer]/faq/SFW842(This link is being provided for informational/educational purposes only.) 17 For patients with diabetes plus 1 major ASCVD risk factor, treating to a non-HDL-C goal of <100 mg/dL (LDL-C of <70 mg/ dL) is considered a therapeutic option. 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 K21.9 Gastro-esophageal [...] without esophagitis I25.10 [place] heart disease [place] coronary artery w/o [facility] pctrs Assessments Date Code Description Provider 11/04/2018 J18.1 Lobar pneumonia, unspecified organism Gauss, Mac 11/04/2018 J44.9 Chronic obstructive pulmonary disease, unspecified Gauss, Mac 11/04/2018 M75.101 Unspecified rotator cuff tear or rupture of right Galio, Mac shoulder, not specified as traumatic 11/04/2018 I34.0 Nonrheumatic mitral (valve) insufficiency Gauss, Mac 11/04/2018 E78.5 Hyperlipidemia, unspecified Gauss, Mac 11/04/2018 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, right ankle and foot Gauss, Mac 11/04/2018 I65.23 Occlusion and stenosis of bilateral carotid arteries Gauss , Mac 10/22/2018 R06.02 Shortness of breath Gauss, Mac 10/22/2018 J44.9 Chronic obstructive pulmonary disease, unspecified Gauss, Mac 10/22/2018 R05 Cough Gauss, Mac 10/07/2018 M75.101 Unspecified rotator cuff tear or rupture of right Gauss, Mac shoulder, not specified as traumatic 09/23/2018 M75.101 Unspecified rotator cuff tear or rupture of right Gauss, Mac shoulder, not specified as traumatic 09/14/2018 M75.101 Unspecified rotator cuff tear or rupture of right Gauss, Mac shoulder, not specified as traumatic 09/08/2018 M75.101 Unspecified rotator cuff tear or rupture of right Gauss, Mac shoulder, not specified as traumatic 08/03/2018 I34.0 Nonrheumatic mitral (valve) insufficiency Stacey, Mac 08/03/2018 E78.5 Hyperlipidemia, unspecified Stacey, Mac 08/03/2018 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, right ankle and foot Stacey, Mac 08/03/2018 I65.23 Occlusion and stenosis of bilateral carotid arteries James Ibarral 08/03/2018 I11.9 Hypertensive heart disease without heart failure Stacey, Mac 08/03/2018 N40.0 Benign prostatic hyperplasia without lower urinary Galio, Mac tract symptoms 08/03/2018 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 08/03/2018 K21.9 Gastro-esophageal reflux disease without esophagitis Stacey Mac 08/03/2018 E55.9 Vitamin D deficiency, unspecified James Ibarral 08/03/2018 R73.01 Impaired fasting glucose James Ibarral 08/03/2018 J44.9 [facility], [facility] Z00.00 Encounter for general adult medical examination Mac Ibarra without abnormal findings 07/08/2018 R00.2 Palpitations James Ibarral 07/08/2018 I73.9 Peripheral vascular disease, unspecified James Ibarral 07/05/2018 I34.0 Nonrheumatic mitral (valve) insufficiency Stacey Mac 07/05/2018 I65.23 Occlusion and stenosis of bilateral carotid arteries James Ibarral 07/01/2018 Z01.810 Encounter for preprocedural cardiovascular examination James Ibarral 07/01/2018 E78.5 Hyperlipidemia, unspecified Stacey, Mac 07/01/2018 I11.9 Hypertensive heart disease without heart failure James Ibarral 07/01/2018 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, right ankle and foot James Ibarral 07/01/2018 I34.0 Nonrheumatic mitral (valve) insufficiency Stacey, Mac 07/01/2018 N40.0 Benign prostatic hyperplasia without lower urinary OkJames vacal tract symptoms 07/01/2018 K21.9 Gastro-esophageal reflux disease without esophagitis James Ibarral 07/01/2018 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 j44.9J44.9 Chronic obstructive pulmonary disease, unspecifiedComments:Discussed importance of [...] footI65.23 Occlusion and stenosis of bilateral carotid arteriesComments:Discussed role of life style choices in dietary fats and exercise plays on evolution of [place] disease and importance of controlling cholesterol. Medications role and side effects in disease progression prevention discussed and need for compliance with prescribed treatment. Follow up testing for progression such as ultrasound surveillance reviewed Functional Status Description No Information Available Mental Status Description No Information Available Referrals Description No Information Available
--- OUTSIDE RECORDS SUMMARY | 2018-12-11 09:43 | XMS REPORT | Continuity of Care Document ---
:1930 External Reference #:[id number] Author Name StaceyJamesl (transmitted by agent of provider Malgorzata Buenrostro) Address [address] [place] [address] Problems Active Problems Provider Date Benign hypertensive [...] Prilosec OTC 1 by mouth 90tabs M10.071 [facility] Mac 08/10/2017 20mg Tablets every day as DR needed Calcium Carbonate 1 PO qd Mac Ibarra 03/03/2005 600mg Tablets Tylenol Arthritis 2 PO qd prn Mac Ibarra 03/03/2005 650mg Caplets Aspirin 1 PO qd Mac Ibarra 03/03/2005 81mg Chewtabs Lipitor 1 po qd 90tabs Stacey Mac 03/03/2005 20mg Tablets History Medications Ipratropium as directed four 270ml J18.1 James Ibarral 11/04/2018 - [place]/Albuterol Sulfate times a day via 11/04/2018 nebulizer. j44.9 0.5-2.5(3)mg/3ML Solution Medications Administered in Office Medication SIG Qnty Indications Ordering Provider Date H1N1 Administration-Use Mac Ibarra 12/26/2008 Injection H1N1 Administration-Use Mac Ibarra 12/26/2008 Injection Immunizations CPT Code Status Date Vaccine Lot # [id number] Given 11/17/2017 Influenza Virus (Afluria) Split Virus 3 Years [id number] Of Age And Older Q2035 Given 12/15/2016 Influenza Virus (Afluria) Split Virus 3 Years Of Age And Older [id number] Given 11/19/2015 Influenza Vaccine (Fluvirin) 5 Years Of Age Or [id number] Older 99447 Given 12/19/2014 Pneumococcal Conjugate Vaccine 13 Valent For [id number] Intramuscular Use Q2035 Given 2014 Influenza Virus (Afluria) Split Virus 3 Years [id number] Of Age And Older Q2037 Given 11/16/2013 Influenza Vaccine (Fluvirin) 3 Years Of Age Or Older Q2037 Given 11/16/2013 Influenza Vaccine (Fluvirin) 3 Years Of Age Or Older Q2038 Given 11/15/2012 Influenza Vaccine (Fluzone) Administered Age 5 [id number] And Older Q2037 Given 11/11/2011 Influenza Vaccine (Fluvirin) 5 Years Of Age Or [id number] Older 46269 Given 12/09/2010 Tetanus,Diphtheria,Adut/Adol Pertussis [id number] Q2036 Given 11/26/2010 Flulaval [id number] 65372 Given 04/30/2010 [place] [id number] 04148 Given 11/08/2009 Influenza Vaccine [id number] 96995 Given 10/09/2009 Zostavax [id number] 29528 Given 01/15/2009 Influenza Vaccine 88372 Given 12/08/2007 Influenza Vaccine [id number] 78398 Given 11/23/2006 Influenza Vaccine [id number] 60464 Given 12/02/2005 Influenza Vaccine 11316 Given 12/02/2005 Influenza Vaccine [id number] 07007 Given 12/17/2004 Influenza Vaccine [id number] 09802 Given 12/17/2004 Influenza Vaccine 84253 Given 12/05/2004 Pneumovax Polyvalent Inj Im [id number] 64747 Given 12/05/2004 [place] [address] Given 11/24/1995 DT Immunization DIP/Tet (History Only) Vital Signs Date Vital Result Comment 11/04/2018 10:12am BP Systolic 163 mmHg BP Diastolic 97 mmHg Heart Rate 104 /min Weight 118.00 lb 10/07/2018 10:52am BP Systolic 140 mmHg BP Diastolic 80 mmHg Heart Rate 95 /min Height 64 inches 5'4" Weight 118.00 lb BMI (Body Mass Index) 20.3 kg/m2 O2 % BldC Oximetry 97 % Results Test Date Facility Test Result H/L Range Note Laboratory test 10/22/2018 [facility] Uric Acid 5.0 mg/dL 4.0-8.0 1, [address] [place], [place] [id number] [phone] Esr,Westergren 50 MM/HR High 0-20 Lipid Panel 10/22/2018 [facility] Cholesterol 115 mg/dL <199 [address] [facility] [place] [address] [phone] HDL Cholesterol 60 mg/dL >40 Cholesterol/HDL Ratio 1.9 CALC <5.0 LDL Chol,Calculated 36 mg/dL 0-100 3 Triglycerides 102 mg/dL <150 Non-HDL Cholesterol 55 mg/dL <130 4 General Health Panel [facility] 10/22/2018 [facility] TSH 1.98 mIU/L 0.40- 4.50 [address] [facility] [place] [address] [phone] T4,Free 1.1 ng/dL 0.8-1.8 CBC W/ Diff & PLT 10/22/2018 [facility] WBC 13.7 thous/L High 3.8-10.8 [address] [facility] [place] [address] [phone] RBC 4.79 mill/L 4.20-5.80 Hemoglobin 14.5 g/dL 13.2-17.1 Hematocrit 42.4 % 38.5-50.0 MCV 88.5 FL 80.0-100.0 MCH 30.3 pg 27.0-33.0 MCHC 34.2 g/dL 32.0-36.0 RDW 13.0 % 11.0-15.0 Platelet Count 287 thous/L 140-400 MPV 9.1 FL 7.5-12.5 Neutrophils,Absolute 44427 cells/L High [phone] Bands,Absolute PENDING Metamyelocytes,Absolute PENDING Myelocytes,Absolute PENDING Promyelocytes,Absolute [...] RBC PENDING Comment PENDING CMP W/GFR 10/22/2018 [facility] Sodium 140 mmol/L 135-[address] [place] [address] [phone] Potassium 4.0 mmol/L 3.5-5.3 Chloride 102 mmol/L [...] 1.9-3.7 A/G Ratio 1.3 1.0-2.5 Egfr Non-Afr. [place] 79 ML/MIN/1.73M2 > Or = 60 Egfr 91 ML/MIN/1.73M2 > Or = 60 Laboratory 10/22/2018 [facility] Vitamin 69 30-[address] D,25-Hydroxy,Total,Immunoassay NG/[place] [address] [phone] Laboratory 06/30/2018 [facility] Uric Acid 5.1 4.0-8.[address] mg/[place] [address] [phone] General 06/30/2018 [facility] TSH 3.00 0.40-4. Health [address] mIU/L 50 [place] [address] [phone] T4,Free 1.0 ng/dL 0.8-1.8 CBC W/ Diff & PLT 06/30/2018 [facility] WBC 9.1 thous/L 3.8-10.[address] [place] [address] [phone] RBC 4.94 mill/L 4.20-5.80 Hemoglobin 14.9 g/dL 13.2-17.1 Hematocrit 45.4 % 38.5-50.0 MCV 91.8 FL 80.0-100.0 MCH 30.0 pg 27.0-33.0 MCHC 32.7 g/dL 32.0-36.0 RDW 14.9 % 11.0-15.0 Platelet Count 277 thous/L 140-400 MPV 8.2 FL 7.5-12.5 Neutrophils,Absolute 7060 cells/L [phone] Bands,Absolute PENDING Metamyelocytes,Absolute PENDING Myelocytes,Absolute PENDING Promyelocytes,Absolute [...] RBC PENDING Comment PENDING CMP W/GFR 06/30/2018 [facility] Sodium 139 mmol/L 135-[address] [place] [address] [phone] Potassium 4.4 mmol/L 3.5-5.3 Chloride 102 mmol/L [...] 1.9-3.7 A/G Ratio 1.6 1.0-2.5 Egfr Non-Afr. [place] 75 ML/MIN/1.73M2 > Or = 60 Egfr 86 ML/MIN/1.73M2 > Or = 60 Laboratory 06/30/2018 [facility] Vitamin 71 30-[address] D,25-Hydroxy,Total,Immunoassay NG/ML finding [place], [place] [id number] [phone] Lipid Panel 06/30/2018 [facility] Cholesterol 115 <[address] mg/[place] [address] [phone] HDL Cholesterol 57 mg/dL >40 Cholesterol/HDL Ratio 2.0 CALC <5.0 LDL Chol,Calculated 39 mg/dL 0-100 16 Triglycerides 105 mg/dL <150 Non-HDL Cholesterol 58 mg/dL <130 17 1 FASTING 2 Therapeutic target for gout patients: <6.0 mg/dL 3 LDL-C is now calculated using the Glenn-Kevin calculation, which is a validated novel method providing better accuracy than the Friedewald equation in the estimation of LDL-C. Glenn SS et al.MEG.2013;310(19):3435-2593 Desirable range <100 mg/dL for primary prevention; [...] Reference Intervals, 7th Ed, [employer], 2011. 6 Reference range for high altitude clients: 18-30 mmol/L 7 GLUCOSE REFERENCE RANGE BASED ON FASTING SPECIMEN. 8 The upper reference limit for Creatinine is approximately 13% higher for people identified as -[place]. 9 Vitamin D Status 25-OH Vitamin D: Deficiency: <20 ng/mL Insufficiency: 20-29 ng/mL Optimal: > or = 30 ng/mL For 25-OH Vitamin D testing on patients on D2-supplementation and patients for whom quantitation of D2 and D3 fractions is required, the [facility] 25-OH Vit D, (D2,D3),LC/MS/MS is recommended: Order code 09097 (patients >2 yrs). 10 Therapeutic target for [...] Viveros, 2015. Pediatric Reference Intervals, 7th Ed, [facility] Press, 2011. 12 Reference range for high altitude clients: 18-30 mmol/L 13 GLUCOSE REFERENCE RANGE BASED ON FASTING SPECIMEN. 14 The upper reference limit for Creatinine is approximately 13% higher for people identified as -[place]. 15 Vitamin D Status 25-OH Vitamin D: Deficiency: <20 ng/mL Insufficiency: 20-29 ng/mL Optimal: > or = 30 ng/mL For 25-OH Vitamin D testing on patients on D2-supplementation and patients for whom quantitation of D2 and D3 fractions is required, the [facility] 25-OH Vit D, (D2,D3),LC/MS/MS is recommended: Order code 86607 (patients >2 yrs). 16 LDL-C is now calculated using the Glenn-Brown calculation, which is a validated novel method providing better accuracy than the Friedewald equation in the estimation of LDL-C. Glenn ROBLES et al.MEG.2013;310(19):1621-1109 Desirable range <100 mg/dL for primary prevention; <70 mg/dL for patients with CHD or diabetic patients with >or= 2 CHD risk factors. For additional information, please refer to http://education.Connect Controls/faq/PKG284(This link is being provided for informational/educational purposes only.) 17 For patients with diabetes plus 1 major ASCVD risk factor, treating to a non-HDL-C goal of <100 mg/dL (LDL-C of <70 mg/ dL) is considered a therapeutic option. Procedures Date Code Description Status 10/22/2018 67317 Spirometry Graphic Record/Max Voluntary Vent Completed 07/08/2018 92994 PVR-Atrerial Study Completed 07/08/2018 09361 Holter Monitor Office Completed 07/05/2018 67964 Non-Invcorrotid/Comp /Bilat Study Completed 07/05/2018 00020 Echocardiography Completed 05/22/2016 264084731 Bone Mineral Density Test Completed 02/24/2004 89083924 Colonoscopy Completed Medical Devices Description No Information [...] tract symp I25.10 Athscl heart disease of [place] coronary artery w/o ang pctrs K21.9 Gastro-esophageal [...] without esophagitis I25.10 Athscl heart disease of [place] coronary artery w/o ang pctrs Assessments Date Code Description Provider 11/04/2018 J18.1 Lobar pneumonia, unspecified organism Stacey, [...] , Mac 10/22/2018 R06.02 Shortness of breath Stacey, Mac 10/22/2018 J44.9 Chronic obstructive pulmonary disease, unspecified Gauss, Mac 10/22/2018 R05 Cough Gauss, Mac 10/07/2018 M75.101 Unspecified rotator cuff tear or rupture of right Galio, Mac shoulder, not specified as traumatic 09/23/2018 M75.101 Unspecified rotator cuff tear or rupture of right Galio, Mac shoulder, not specified as traumatic 09/14/2018 M75.101 Unspecified rotator cuff tear or rupture of right Galio, Mac shoulder, not specified as traumatic 09/08/2018 M75.101 Unspecified rotator cuff tear or rupture of right Galio, Mac shoulder, not specified as traumatic 08/03/2018 I34.0 Nonrheumatic mitral (valve) insufficiency Gauss, Mac 08/03/2018 E78.5 [facility], [facility]2018 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, right ankle and foot [facility] 08/03/2018 I65.23 Occlusion and stenosis of bilateral carotid arteries Stacey [facility] 08/03/2018 I11.9 Hypertensive heart disease without heart failure [facility] 08/03/2018 N40.0 Benign prostatic hyperplasia without lower urinary MiJames vacal tract symptoms 08/03/2018 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 08/03/2018 K21.9 Gastro-esophageal reflux disease without esophagitis Milio [facility] 08/03/2018 E55.9 Vitamin D deficiency, unspecified [facility] 08/03/2018 R73.01 Impaired fasting glucose [facility] 08/03/2018 J44.9 Chronic obstructive pulmonary disease, unspecified [facility] 08/03/2018 Z00.00 Encounter for general adult medical examination James Ibarral without abnormal findings 07/08/2018 R00.2 [facility]pitations [facility] 07/08/2018 I73.9 Peripheral vascular disease, unspecified [facility] 07/05/2018 I34.0 Nonrheumatic mitral (valve) insufficiency [facility] 07/05/2018 I65.23 Occlusion and stenosis of bilateral carotid arteries Milio [facility] 07/01/2018 Z01.810 Encounter for preprocedural cardiovascular examination [facility] 07/01/2018 E78.5 Hyperlipidemia, unspecified [facility] 07/01/2018 I11.9 Hypertensive heart disease without heart failure [facility] 07/01/2018 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, right ankle and foot [facility] 07/01/2018 I34.0 Nonrheumatic mitral (valve) insufficiency [facility] 07/01/2018 N40.0 Benign prostatic hyperplasia without lower urinary MiJames vacal tract symptoms 07/01/2018 K21.9 Gastro-esophageal reflux disease without esophagitis Milio [facility] 07/01/2018 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 Medications role and side effects in disease progression prevention discussed and need for compliance with prescribed treatment. Follow up testing for progression such as ultrasound surveillance reviewed Functional Status Description No Information Available Mental Status Description No Information Available Referrals Description No Information Available
--- OUTSIDE RECORDS SUMMARY | 2018-12-11 09:43 | XMS REPORT | Continuity of Care Document ---
:1930 External Reference #:[id number] Author Name AlejandroJeremyKierra Problems Active Problems Provider Date Benign hypertensive [...] 07/26/2007 Hyperlipidemia Mac Ibarra Onset: 07/26/2007 Osteoporosis Stacey, Mac Onset: 07/26/2007 Gastroesophageal reflux disease Mac Ibarra [...] Date Nebulizer use four times 1units J18.1 Stacey Mac 11/04/2018 Device daily dx j45.998 as needed Levalbuterol HCL Use 1 3 ML qid 15ml J18.1 Mac Ibarra 11/04/2018 prn SOB 0.31mg/3ML Nebulizer Indomethacin 1 by mouth 60caps M10.071 [facility] 03/03/2018 25mg every 8 hours Capsules as needed Flomax 2 by mouth 180caps Stacey Mac 08/10/2017 0.4mg Capsules every day Prilosec OTC 1 by mouth 90tabs M10.071 [facility] 08/10/2017 20mg Tablets every day as DR needed Calcium Carbonate 1 PO qd Stacey Mac 03/03/2005 600mg Tablets Tylenol Arthritis 2 PO qd prn Stacey Mac 03/03/2005 650mg Caplets Aspirin 1 PO qd Stacey Mac 03/03/2005 81mg Che[place] Lipitor 1 po qd 90tabs [facility] 03/03/2005 20mg Tablets History Medications Ipratropium as directed four 270ml J18.1 Stacey [facility] 11/04/2018 - [place]/Albuterol Sulfate times a day via 11/04/2018 nebulizer. j44.9 0.5-2.5(3)mg/3ML Solution Medications Administered in Office Medication SIG Qnty Indications Ordering Provider Date H1N1 Administration-Use Mac Ibarra 12/26/2008 Injection H1N1 Administration-Use Mac Ibarra 12/26/2008 Injection Immunizations CPT Code Status Date Vaccine Lot # [id number] Given 11/17/2017 Influenza Virus (Afluria) Split Virus 3 Years [id number] Of Age And Older Q2035 Given 12/15/2016 Influenza Virus (Afluria) Split Virus 3 Years Of Age And Older Q2037 Given 11/19/2015 Influenza Vaccine (Fluvirin) 5 Years Of Age Or [id number] Older 77139 Given 12/19/2014 Pneumococcal Conjugate Vaccine 13 Valent For [id number] Intramuscular Use Q2035 Given 2014 Influenza Virus (Afluria) Split Virus 3 Years [id number] Of Age And Older Q2037 Given 11/16/2013 Influenza Vaccine (Fluvirin) 3 Years Of Age Or Older Q2037 Given 11/16/2013 Influenza Vaccine (Fluvirin) 3 Years Of Age Or Older Q2038 Given 11/15/2012 Influenza Vaccine (Fluzone) Administered Age 3 [id number] And Older Q2037 Given 11/11/2011 Influenza Vaccine (Fluvirin) 5 Years Of Age Or [id number] Older 63017 Given 12/09/2010 Tetanus,Diphtheria,Adut/Adol Pertussis [id number] Q2036 Given 11/26/2010 Flulaval [id number] 10608 Given 04/30/2010 [place] [id number] 78368 Given 11/08/2009 Influenza Vaccine [id number] 35680 Given 10/09/2009 Zostavax [id number] 86720 Given 01/15/2009 Influenza Vaccine 17356 Given 12/08/2007 Influenza Vaccine [id number] 45659 Given 11/23/2006 Influenza Vaccine 11863 18192 Given 12/02/2005 Influenza Vaccine 69340 Given 12/02/2005 Influenza Vaccine [id number] 57239 Given 12/17/2004 Influenza Vaccine [id number] 31139 Given 12/17/2004 Influenza Vaccine 87539 Given 12/05/2004 Pneumovax Polyvalent Inj Im [id number] 43792 Given 12/05/2004 [place] [address] Given 11/24/1995 DT Immunization DIP/Tet (History Only) [...] H/L Range Note Comprehensive Metabolic 11/25/2018 [facility] Glucose 220 mg/dL High 65-[address] [place] [address] [phone] Urea Nitrogen (BUN) 16 mg/dL Normal 7-25 Creatinine 0.74 mg/dL Normal 0.70-1.11 2 eGFR Non-Afr. [place] 84 mL/min/1.73m2 Normal > Or = 60 [...] U/L Normal 9-46 Laboratory test 11/25/2018 [facility] Enhanced PDF SEE IMAGE finding [address] [place] [address] [id number] [phone] Laboratory test 10/22/2018 Old DO Not Use [facility] Uric Acid 5.0 mg/dL 4.0-8 3, [address] [place], [place] [id number] [phone] Esr,[place] 50 MM/HR High 0-20 Lipid Panel 10/22/2018 Old DO Not Use [facility] Cholesterol 115 mg/dL < [address] [place] [address] [phone] HDL Cholesterol 60 mg/dL >40 Cholesterol/HDL Ratio 1.9 CALC <5.0 LDL Chol,Calculated 36 mg/dL 0-100 5 Triglycerides 102 mg/dL <150 Non-HDL Cholesterol 55 mg/dL <130 6 General Health Panel 10/22/2018 Old DO Not Use [facility] TSH 1.98 mIU/L 0.40-4.[address] [facility] [address] [place] [address] [phone] T4,Free 1.1 ng/dL 0.8-1.8 CBC W/ Diff & 10/22/2018 Old DO Not Use [facility] WBC 13.7 thous/L High 3.8-10.8 PLT [address] [place] [address] [phone] RBC 4.79 mill/L 4.20-5.80 Hemoglobin 14.5 g/dL 13.2-17.1 Hematocrit 42.4 % 38.5-50.0 MCV 88.5 FL 80.0-100.0 MCH 30.3 pg 27.0-33.0 MCHC 34.2 g/dL 32.0-36.0 RDW 13.0 % 11.0-15.0 Platelet Count 287 thous/L 140-400 MPV 9.1 FL 7.5-12.5 Neutrophils,Absolute 22775 cells/L High 8981-4539 Bands,Absolute PENDING Metamyelocytes,Absolute PENDING Myelocytes,Absolute PENDING Promyelocytes,Absolute [...] [facility] Sodium 140 mmol/L 135-[address] [place] [address] [phone] Potassium 4.0 mmol/L 3.5-5.3 Chloride 102 mmol/L [...] 1.9-3.7 A/G Ratio 1.3 1.0-2.5 Egfr Non-Afr. [place] 79 ML/MIN/1.73M2 > Or = 60 Egfr 91 ML/MIN/1.73M2 > Or = 60 Laboratory 10/22/2018 Old DO Not Use [facility] Vitamin 69 30-[address] D,25-Hydroxy,Total,Immunoassay NG/[place] [address] [phone] Laboratory 06/30/2018 Old DO Not Use [facility] Uric Acid 5.1 4.0-8.[address] mg/[place] [address] [phone] General 06/30/2018 Old DO Not Use [facility] TSH 3.00 0.40-4. Health [address] mIU/L 50 [place] [address] [phone] T4,Free 1.0 ng/dL 0.8-1.8 CBC W/ Diff & PLT 06/30/2018 Old DO Not Use [facility] WBC 9.1 thous/L 3.8-10.[address] [place] [address] [phone] RBC 4.94 mill/L 4.20-5.80 Hemoglobin 14.9 g/dL 13.2-17.1 Hematocrit 45.4 % 38.5-50.0 MCV 91.8 FL 80.0-100.0 MCH 30.0 pg 27.0-33.0 MCHC 32.7 g/dL 32.0-36.0 RDW 14.9 % 11.0-15.0 Platelet Count 277 thous/L 140-400 MPV 8.2 FL 7.5-12.5 Neutrophils,Absolute 7060 cells/L 5121-9982 Bands,Absolute PENDING Metamyelocytes,Absolute PENDING Myelocytes,Absolute PENDING Promyelocytes,Absolute [...] [facility] Sodium 139 mmol/L 135-[address] [place] [address] [phone] Potassium 4.4 mmol/L 3.5-5.3 Chloride 102 mmol/L [...] 1.9-3.7 A/G Ratio 1.6 1.0-2.5 Egfr Non-Afr. [place] 75 ML/MIN/1.73M2 > Or = 60 Egfr 86 ML/MIN/1.73M2 > Or = 60 Laboratory 06/30/2018 Old DO Not Use [facility] Vitamin 71 30-[address] D,25-Hydroxy,Total,Immunoassay NG/[place] [address] [phone] Lipid Panel 06/30/2018 Old DO Not Use [facility] Cholesterol 115 <[address] mg/[place] [address] [phone] HDL Cholesterol 57 mg/dL >40 Cholesterol/HDL Ratio [...] approximately 13% higher for people identified as -[place]. 3 FASTING 4 Therapeutic target for gout patients: <6.0 mg/dL 5 LDL-C is now calculated using the Glenn-Brown calculation, which is a validated novel method providing better accuracy than the Friedewald equation in the estimation of LDL-C. Glenn ROBLES et al.MEG.2013;310(19):3746-6800 Desirable range <100 mg/dL for primary prevention; [...] approximately 13% higher for people identified as -[place]. 11 Vitamin D Status 25-OH Vitamin D: Deficiency: <20 ng/mL Insufficiency: 20-29 ng/mL Optimal: > or = 30 ng/mL For 25-OH Vitamin D testing on patients on D2-supplementation and patients for whom quantitation of D2 and D3 fractions is required, the [facility] 25-OH Vit D, (D2,D3),LC/MS/MS is recommended: Order code 09355 (patients >2 yrs). 12 Therapeutic target for [...] Viveros, 2015. Pediatric Reference Intervals, 7th Ed, [facility] Press, 2011. 14 Reference range for high altitude clients: 18-30 mmol/L 15 GLUCOSE REFERENCE RANGE BASED ON FASTING SPECIMEN. 16 The upper reference limit for Creatinine is approximately 13% higher for people identified as -[place]. 17 Vitamin D Status 25-OH Vitamin D: Deficiency: <20 ng/mL Insufficiency: 20-29 ng/mL Optimal: > or = 30 ng/mL For 25-OH Vitamin D testing on patients on D2-supplementation and patients for whom quantitation of D2 and D3 fractions is required, the [facility] 25-OH Vit D, (D2,D3),LC/MS/MS is recommended: Order code 88100 (patients >2 yrs). 18 LDL-C is now calculated using the Glenn-Brown calculation, which is a validated novel method providing better accuracy than the Friedewald equation in the estimation of LDL-C. Glenn SS et al.MEG.2013;310(19):3895-5260 Desirable range <100 mg/dL for primary prevention; <70 mg/dL for patients with CHD or diabetic patients with >or= 2 CHD risk factors. For additional information, please refer to http://education.[employer].So[employer]io/faq/OOQ566(This link is being provided for informational/educational purposes only.) 19 For patients with diabetes plus 1 major ASCVD risk factor, treating to a non-HDL-C goal of <100 mg/dL (LDL-C of <70 mg/ dL) is considered a therapeutic option. Procedures Date Code Description Status 10/22/2018 33273 Spirometry Graphic Record/Max Voluntary Vent Completed 07/08/2018 79699 PVR-Atrerial Study Completed 07/08/2018 06035 Holter Monitor Office Completed 07/05/2018 18680 Non-Invcorrotid/Comp /Bilat Study Completed 07/05/2018 79840 Echocardiography Completed 05/22/2016 995984078 Bone Mineral Density Test Completed 02/24/2004 74236996 Colonoscopy Completed Medical Devices Description No Information [...] tract symp I25.10 Athscl heart disease of [place] coronary artery w/o ang pctrs K21.9 Gastro-esophageal [...] without esophagitis I25.10 Athscl heart disease of [place] coronary artery w/o ang pctrs Assessments Date Code Description Provider 11/18/2018 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 Galio, Mac 11/18/2018 J18.1 Lobar pneumonia, unspecified organism Gauss, Mac 11/18/2018 J44.9 Chronic obstructive pulmonary disease, unspecified Gauss, Mac 11/18/2018 M75.101 Unspecified rotator cuff tear or rupture of right Mac Ibarra shoulder, not specified as traumatic 11/18/2018 I34.0 Nonrheumatic mitral (valve) insufficiency Gauss, Mac 11/18/2018 E78.5 Hyperlipidemia, unspecified Gauss, Mac 11/18/2018 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, right ankle and foot Galio, Mac 11/18/2018 I65.23 Occlusion and stenosis of [...] J44.9 Chronic obstructive pulmonary disease, unspecified Stacey [facility] 10/22/2018 R05 Cough Stacey [facility] 10/07/2018 M75.101 Unspecified rotator cuff tear [...] traumatic 08/03/2018 I34.0 [facility] E78.5 Hyperlipidemia, unspecified Stacey [facility] 08/03/2018 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, right ankle and foot Stacey [facility] 08/03/2018 I65.23 Occlusion and stenosis of bilateral carotid arteries James Ibarral 08/03/2018 I11.9 [facility]2018 N40.0 Benign prostatic hyperplasia without lower urinary James Ibarral tract symptoms 08/03/2018 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 08/03/2018 K21.9 Gastro-esophageal reflux disease without esophagitis James Ibarral 08/03/2018 E55.9 Vitamin D deficiency, unspecified Stacey [facility] 08/03/2018 R73.01 Impaired fasting glucose James Ibarral 08/03/2018 J44.9 [facility], [facility]2018 Z00.00 Encounter for general adult medical examination Mac Ibarra without abnormal findings 07/08/2018 R00.2 Palpitations James Ibarral 07/08/2018 I73.9 Peripheral vascular disease, unspecified James Ibarral 07/05/2018 I34.0 Nonrheumatic mitral (valve) insufficiency Stacey [facility] 07/05/2018 I65.23 Occlusion and stenosis of bilateral carotid arteries Mac Ibarra 07/01/2018 Z01.810 Encounter for preprocedural cardiovascular examination Mac Ibarra 07/01/2018 E78.5 Hyperlipidemia, unspecified Mac Ibarra 07/01/2018 I11.9 Hypertensive heart disease without heart failure Mac Ibarra 07/01/2018 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, right ankle and foot Mac Ibarra 07/01/2018 I34.0 Nonrheumatic mitral (valve) insufficiency Mac Ibrara 07/01/2018 N40.0 Benign prostatic hyperplasia without lower urinary Mac Ibarra tract symptoms 07/01/2018 K21.9 Gastro-esophageal reflux disease without esophagitis Mac Ibarra 07/01/2018 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 Medications role and side effects in disease progression prevention discussed and need for compliance with prescribed treatment. Follow up testing for progression such as ultrasound surveillance reviewed Functional Status Description No Information Available Mental Status Description No Information Available Referrals Description No Information Available
[2018-12-11 09:52] VITALS: BP 141/78
--- NOTE | 2018-12-11 10:55 | UC ---
Upper Extremity HPI - HPI Summary HPI Summary: 88-year-old male comes in with a chief complaint of left arm swelling which started 3 days ago. Has no pain no known trauma. He did have a right-sided chest lung mass biopsy done 3 days ago. Had an IV in the right arm at that time did not have an IV in the left arm. Patient tells me he is scheduled to get the results of the mass biopsy on December 13, 2018. No pain in the arm no weakness no numbness. Patient is not on any blood thinners. Patient does have some chronic shortness of breath with activity. - History of Current Complaint Chief Complaint: UCUpperExtremity Stated Complaint: LT ARM SWELLING Time Seen by Provider: 12/11/18 10:20 Pain Intensity: 0 - Allergies/Home Medications Allergies/Adverse Reactions: Allergies Allergy/AdvReac Type Severity Reaction Status Date / Time Sulfa (Sulfonamide Allergy Nausea And Verified 12/11/18 09:46 Antibiotics) Vomiting PMH/Surg Hx/FS Hx/Imm Hx Previously Healthy: Yes Other Cancer History: LUNG CANCER? - Surgical History Surgical History: Yes Surgery Procedure, Year, and Place: cataracts 2013, eye surgery 2014. [facility]- 08/2018-[place] - Family History Known Family History: Positive: Hypertension - Social History Alcohol Use: Rare Substance Use Type: None Smoking Status (MU): Former Smoker Amount Used/How Often: 1 PPD X 25-30 YEARS Have You Smoked in the Last Year: No When Did the Patient Quit Smoking/Using Tobacco: 1982 - Immunization History Most Recent Influenza Vaccination: 2013 Review of Systems All Other Systems Reviewed And Are Negative: Yes Constitutional: Positive: Negative Skin: Positive: Other - SEE HPI Eyes: Positive: Negative ENT: Positive: Negative Respiratory: Positive: Shortness Of Breath Cardiovascular: Positive: Negative Gastrointestinal: Positive: Negative Motor: Positive: Negative Neurovascular: Positive: Negative Musculoskeletal: Positive: Edema Neurological: Positive: Negative Psychological: Positive: Negative Is Patient Immunocompromised?: No Physical Exam Triage Information Reviewed: Yes Appearance: Well-Appearing, No Pain Distress, Well-Nourished Vital Signs: Initial Vital Signs Temp 98.1 F 12/11/18 09:48 Pulse 101 12/11/18 09:48 Resp 19 12/11/18 09:48 BP 141/78 12/11/18 09:48 Pulse Ox 97 12/11/18 09:48 Vital Signs Reviewed: Yes Eye Exam: Normal Eyes: Positive: Conjunctiva Clear Neck: Positive: Supple Respiratory: Positive: Lungs clear, Normal breath sounds, No respiratory distress Cardiovascular: Positive: RRR Musculoskeletal: Positive: Other: - Left arm is edema from the mid humerus distally. I can appreciate a radial pulse although it's not as strong as the right radial pulse. Normal capillary refill normal sensation. Fingers wrist elbows and shoulders have full range of motion. Neurological: Positive: Alert Psychological: Positive: Age Appropriate Behavior Skin: Positive: Other - Left arm edema. Upper Extremity Course/Dx - Course Course Of Treatment: Due to is not having ultrasound here recommended further evaluation in the emergency department to get a venous Doppler to rule out blood clot in the arm or other causes of left arm swelling. On the scene patient's chart it appears that this recent mass is lung cancer although I was able to get the pathology report for the recent biopsy. Patient plans to go to the [place] emergency department and I discussed with the provider let them know of our concerns. - Differential Dx/Diagnosis Provider Diagnosis: Left arm swelling Discharge ED - Sign-Out/Discharge Documenting (check all that apply): Patient Departure All imaging exams completed and their final reports reviewed: No Studies - Discharge Plan Condition: Stable Disposition: HOME-RECOMMEND TO ED Referrals: Mac Ibarra MD [Primary Care Provider] - Additional Instructions: GO DIRECTLY TO THE EMERGENCY DEPARTMENT FOR FURTHER EVALUATION AND CARE OF YOUR LEFT ARM SWELLING. - Billing Disposition and Condition Condition: STABLE Disposition: Home-Recommend to ED
== END 2018-12-11 10:59 | disposition home health service (06) ==
LOC: UCCORT 09:29
DX: M79.89 Other specified soft tissue disorders (principal); R91.8 Other nonspecific abnormal finding of lung field; R06.02 Shortness of breath; Z88.2 Allergy status to sulfonamides; Z87.891 Personal history of nicotine dependence
CPT/HCPCS: 99212; G0463